=== PATIENT | male | born 1965 | race Caucasian/White ===

== ENCOUNTER 2020-07-22 06:57 | Outpatient (REF) | payer OTHER, SELFPAY ==
[2020-07-22 08:00] LABS: Hematocrit 41.1 % (42-52); Hemoglobin 13.3 g/dl (14.0-18.0); Mean Corpuscular HGB Conc 32.4 g/dl (31.0-36.0); Mean Corpuscular Hemoglobin 28.1 pg (27.0-33.0); Mean Corpuscular Volume 86.9 fL (80-98); Mean Platelet Volume 10.5 fL (9.4-12.4); Platelet Count 289 X10*3/uL (160-400); Red Blood Count 4.73 X10*6/uL (4.60-5.80); Red Cell Distribution Width 13.5 % (11.0-16.0); White Blood Count 5.3 X10*3/uL (4.8-10.8)
[2020-07-22 08:13] LABS: Estimated Average Glucose 123 mg/dL; Hemoglobin A1c % 5.9 %
[2020-07-22 08:26] LABS: Alanine Aminotransferase 42 U/L (0-40); Albumin Level 4.2 g/dL (3.5-5.0); Alkaline Phosphatase 85 U/L (39-117); Anion Gap 14 (12-20); Aspartate Amino Transferase 35 U/L (5-37); Bilirubin Total 0.5 mg/dL (0.0-1.0); Blood Urea Nitrogen 34 mg/dL (9-16); Calcium 8.6 mg/dL (8.4-10.2); Carbon Dioxide 23 mmol/L (22-29); Chloride 109 mmol/L (96-108); Cholesterol 172 mg/dL; Estimated Glomerular Filt Rate 56; Glucose Fasting 108 mg/dL (60-99); HDL Cholesterol 38 mg/dL; LDL Cholesterol Calculated 118 mg/dl; Potassium 4.8 mmol/L (3.3-5.1); Sodium 141 mmol/L (135-145); Total Protein 7.1 g/dL (6.5-8.0); Triglycerides 81 mg/dL
[2020-07-22 08:49] LABS: Prostate Specific Antigen Scr 0.82 ng/mL (<0.05-4.0); TSH reflex Free T4 1.86 uIU/mL (0.32-4.0)
[2020-07-22 09:25] LABS: Creatinine Urine 78.38 mg/dL; Microalbum/Creatinine Ratio Ur 16.5 ug/mg cr
== END 2020-07-22 06:58 | disposition home or self-care (01) ==
LOC: HO.LAB 06:57
PROVIDERS: PCP Physician Assistant; Visit Provider Physician Assistant
DX: I10 Essential (primary) hypertension (principal); E66.09 Other obesity due to excess calories; Z68.33 Body mass index [BMI] 33.0-33.9, adult; Z12.5 Encounter for screening for malignant neoplasm of prostate
CPT/HCPCS: 36415; 80053; 80061; 82043; 83036; 84153; 84443; 85027

== ENCOUNTER 2021-05-14 14:47 | Outpatient (REF) | payer OTHER, SELFPAY ==
--- NOTE | ~2021-05-14 | XR_ITS ---
EXAMINATION: CR LEFT SHOULDER. CR RIGHT SHOULDER. CLINICAL INFORMATION: Pain and unspecified shoulder. COMPARISON: None TECHNIQUE: 3 views of the left shoulder and 3 views of the right shoulder. FINDINGS: Bilaterally, no acute fracture or dislocation is seen. The glenohumeral joint and acromioclavicular joints are intact. There is prominent bursal and nonbursal surface spurring seen at the acromioclavicular joints bilaterally. No joint calcifications are seen. Included ribs bilaterally are intact. XR/XR shoulder RT min 2V IMPRESSION: 1. No acute fracture or dislocation involving the right or left shoulder. 2. Moderate degenerative changes at the acromioclavicular joints bilaterally, including bursal surface spurring is. These findings may predispose to impingement. Clinical correlation requested.
--- NOTE | ~2021-05-14 | XR_ITS ---
EXAMINATION: CR LEFT SHOULDER. CR RIGHT SHOULDER. CLINICAL INFORMATION: Pain and unspecified shoulder. COMPARISON: None TECHNIQUE: 3 views of the left shoulder and 3 views of the right shoulder. FINDINGS: Bilaterally, no acute fracture or dislocation is seen. The glenohumeral joint and acromioclavicular joints are intact. There is prominent bursal and nonbursal surface spurring seen at the acromioclavicular joints bilaterally. No joint calcifications are seen. Included ribs bilaterally are intact. XR/XR shoulder LT min 2V IMPRESSION: 1. No acute fracture or dislocation involving the right or left shoulder. 2. Moderate degenerative changes at the acromioclavicular joints bilaterally, including bursal surface spurring is. These findings may predispose to impingement. Clinical correlation requested.
== END 2021-05-14 14:48 | disposition home or self-care (01) ==
LOC: HO.HOSX 14:47
PROVIDERS: PCP Physician Assistant; Visit Provider Orthopaedic Surgery
DX: M67.911 Unspecified disorder of synovium and tendon, right shoulder (principal); M25.512 Pain in left shoulder; M25.511 Pain in right shoulder
CPT/HCPCS: 73030

== ENCOUNTER 2021-06-07 10:11 | Outpatient (REF) | payer OTHER, SELFPAY ==
[2021-06-07 12:32] LABS: Binax Internal Control QC Valid; Binax Now Covid-19 Ag Positive (Negative)
== END 2021-06-07 10:12 | disposition home or self-care (01) ==
LOC: HO.HMGCLDS 10:11
PROVIDERS: Visit Provider Internal Medicine
DX: Z20.822 Contact with and (suspected) exposure to COVID-19 (principal)
CPT/HCPCS: 36415; C9803

== ENCOUNTER 2021-06-28 12:50 | Outpatient (REF) | payer OTHER, SELFPAY ==
--- NOTE | ~2021-06-28 | MR_ITS ---
EXAMINATION: MR SHOULDER WITHOUT CONTRAST, RIGHT CLINICAL INFORMATION: Right shoulder pain following an injury. Decreased range of motion. Weakness and dysfunction of rotator cuff. COMPARISON: None TECHNIQUE: MRI of the shoulder without contrast was performed on a high-field scanner. FINDINGS: ROTATOR CUFF: Complete full-thickness tears of the supraspinatus and infraspinatus tendons with retraction of the torn tendon fibers proximal to the glenohumeral articulation. Edema within the muscles, consistent with acute muscle strains. Prominent subscapularis tendinosis with superior full-thickness partial tearing measuring up to 3.4 cm in ML dimension. Adjacent soft tissue edema. Severe teres minor muscle atrophy and fatty replacement. BICEPS: Normal. CORACOACROMIAL ARCH: The undersurface of the acromion is minimally curved with no subacromial spur. Severe acromioclavicular osteoarthritis. LABRUM/CAPSULE: Fluid within the undersurface of the posterosuperior, posterior, and posteroinferior labrum, consistent with nondisplaced undersurface tearing. Degenerative signal throughout the remaining labrum. GLENOHUMERAL JOINT/MARROW: Superior subluxation of the humeral head related to the rotator cuff tendon tears. Intact articular cartilage. No acute fracture. Large joint effusion. MR/MR shoulder RT wo con IMPRESSION: 1. Acute-appearing, complete full-thickness tears of the supraspinatus and infraspinatus tendons with retraction of the tendon fibers proximal to the glenohumeral articulation. Edema extending proximally within the muscles, consistent with acute strains. 2. Prominent subscapularis tendinosis with full-thickness partial tearing superiorly. 3. Severe acromioclavicular osteoarthritis. 4. Nondisplaced undersurface tearing throughout the posterosuperior, posterior, and posteroinferior labrum. Degenerative signal throughout the entirety of the labrum. 5. Superior subluxation of the humeral head related to the rotator cuff tendon tears. No acute fracture. Large glenohumeral joint effusion.
== END 2021-06-28 12:51 | disposition home or self-care (01) ==
LOC: HO.MRI 12:50
PROVIDERS: Visit Provider Orthopaedic Surgery
DX: M67.911 Unspecified disorder of synovium and tendon, right shoulder (principal); R29.898 Other symptoms and signs involving the musculoskeletal system
CPT/HCPCS: 73221

== ENCOUNTER → 2021-07-30 12:34 | Outpatient (BNVA) | payer OTHER, SELFPAY | PROVIDERS: PCP Physician Assistant; Visit Provider Orthopaedic Surgery ==

== ENCOUNTER 2021-08-15 05:52 | Day surgery (SDC) | payer OTHER, SELFPAY ==
[2021-08-08 19:55] VITALS: BMI 30.1
--- NOTE | 2021-08-13 11:53 | HO.ANESPROP2 ---
Documented by User: Lizbeth Guerrero NP 08/13/21 11:54 HPI - Anesthesia Eval Consult details Narrative: 56yo M for Right Arthroscopic Rotator Cuff Repair PMFSH Active Problems Active Problems: All Active Problems (Updated 08/08/21 @ 19:49 by Soraya Seymour RN) HTN (hypertension) (Acute) Obese (Acute) Annual physical exam (Acute) Impaired glucose metabolism (Acute) Right arm weakness (Acute) Dysfunction of right rotator cuff (Acute) Complete rotator cuff tear (Acute) Past Medical History Medical History (Updated 08/08/21 @ 19:49 by Soraya Seymour RN) Back pain Hypertension Normal colonoscopy Family History Family History Father Heart attack Alcoholic DMII (diabetes mellitus, type 2) Substance use disorder Surgical History Surgical History (Updated 08/08/21 @ 19:53 by Soraya Seymour RN) History of back surgery History of left hip hemiarthroplasty History of right hip replacement Social History Social History Housing: House Alcohol intake: current Alcohol intake frequency: a few times a month Patient Tobacco Use Status: Never used Tobacco e-Cigarette/Vaping Use: Never Used Second Hand Smoke Exposure: No Use of substances other than those prescribed or required for medical reasons: No Are you DNR?: No Advance Directives: No Advance Directives Information Provided: No Advance Directives on File: No Recently lost weight without trying: No Nutrition Risks: No Nutritional Risk Current occupational status: employed Current occupation: [employer] Allergies Allergy/AdvReac Type Severity Reaction Status Date / Time No Known Allergies Allergy Verified 02/13/21 08:34 [No Known Allergies*] Home Medications Medication Instructions Recorded Confirmed Last Taken Type ibuprofen 600 mg tablet 600 mg PO Q6H 05/14/21 08/08/21 Unknown History Exam Exam Date and Time: August 13, 2021 1153 Height,Weight and Vital Signs: Height 5 ft 10 in Weight 95.254 kg Assessment and Plan Assessment Anesthesia Assessment: Chart Reviewed Documented by User: Miles Gipson MD 08/15/21 07:50 PMF Past Medical History Medical History (Updated 08/08/21 @ 19:49 by Soraya Seymour, GREGORY) Back pain Hypertension Normal colonoscopy Family History Family History Father Heart attack Alcoholic DMII (diabetes mellitus, type 2) Substance use disorder Family history of problems with anesthesia: No Surgical History Surgical History (Updated 08/08/21 @ 19:53 by Soraya Seymour RN) History of back surgery History of left hip hemiarthroplasty History of right hip replacement History of Problems with Anesthesia: No Social History Social History Housing: House Alcohol intake: current Alcohol intake frequency: a few times a month Patient Tobacco Use Status: Never used Tobacco e-Cigarette/Vaping Use: Never Used Second Hand Smoke Exposure: No Use of substances other than those prescribed or required for medical reasons: No Are you DNR?: No Advance Directives: No Advance Directives Information Provided: No Advance Directives on File: No Recently lost weight without trying: No Nutrition Risks: No Nutritional Risk Current occupational status: employed Current occupation: [employer] Allergies Allergy/AdvReac Type Severity Reaction Status Date / Time No Known Allergies Allergy Verified 02/13/21 08:34 [No Known Allergies*] Home Medications Medication Instructions Recorded Confirmed Last Taken Type ibuprofen 600 mg tablet 600 mg PO Q6H 05/14/21 08/08/21 Unknown History Exam Airway Mallampati Class: III TM Dist: >3cm Neck ROM: Full Assessment and Plan Assessment Anesthesia Assessment: Anesthesia Plan Discussed Final Anesthetic Review Family History of Problems with Anesthesia: No History of Problems with Anesthesia: No NPO: Yes ASA Class: II Final Preanesthetic Review: No Changes in Pt Med Stat, Meds/Allgs Chart Reviewed, Consent Obtained/Reviewed and Anes Risks/Benef Reviewed Patient Risk: Intermediate Procedure Risk: Intermediate Anesthetic Plan Anesthetic Plan: GA and Regional Block Disposition: Standard PACU
[2021-08-15] VITALS (10 sets, daily range): BP systolic 128–147; BP diastolic 66–100; PULSE 67–81; RESP 16–20; TEMP 36.1–36.5; O2SAT 90–97
[2021-08-15] MEDS: Lactated Ringers 1,000 ML 100 ML IVCONT (06:32)
--- NOTE | 2021-08-15 09:07 | MHC.SHP ---
Pre-Procedural Eval Section A Date of Service: 08/15/21 The patient is an INPATIENT: No Changes since office visit: Yes Patient answered all questions; No Cold of Flu in the past 2 weeks, No New Medical Problems and No Changes in Medication The History & Physical has been completed within 30 days and I have reviewed it.: Yes Section B Chief Complaint: rotator cuff repair Allergies: Allergies Allergy/AdvReac Type Severity Reaction Status Date / Time No Known Allergies Allergy Verified 02/13/21 08:34 [No Known Allergies*] Plan I have reviewed the history and physical and performed a pertinent physical examination on my patient. No changes have occurred unless specified.
--- NOTE | 2021-08-15 09:08 | P.BOP_ITS ---
Brief Operative Note Date of Service: 08/15/21 Pre-op diagnosis: right RTC tear Post-op diagnosis: other (Massive rtc tear) Procedure: rotator cuff repair and circumferential labral debridement Implants: Morris and Nephew helacoil knotless 5.0 x2 Surgeon: Joel Damon MD Anesthesia: GETA and regional Was an Reinforced Concrete Inspector used for this Procedure?: Yes Reinforced Concrete Inspector: Rosie Wu Estimated blood loss (mL): 25 IV fluids (mL): 1,000 Pathology: none sent Condition: stable Disposition: PACU
--- NOTE | 2021-08-15 09:10 | W.PM.OPN ---
Operative Note Operative Note Date of Service: 08/15/21 Narrative: Pre-op diagnosis: right RTC tear Post-op diagnosis: other (Massive rtc tear) Procedure: rotator cuff repair and circumferential labral debridement Implants: Morris and Nephew helacoil knotless 5.0 x2 Surgeon: Joel Damon MD Anesthesia: GETA and regional Was an English Instructor used for this Procedure?: Yes English Instructor: Rosie Wu Estimated blood loss (mL): 25 IV fluids (mL): 1,000 Pathology: none sent Condition: stable Disposition: PACU Procedure in detail: Patient was brought to the operating room and placed the the beach chair position. All bony prominences were well padded and the limb was prepped and draped in standard sterile fashion. A time out was called to identify proper site, proper procedure and proper surgeon. IV antibiotics per weight were administered. I began by making a posterolateral stab incision with a 15 blade. A blunt trochar was placed into the glenohumeral joint and I insufflated the joint with saline and a 30 degree arthroscope was placed. I established an outside- in anterior portal just distal to the biceps tendon. I then began my inspection of the glenohumeral joint. There was G2/3 scattered changes to the glenoid. There was circumferential labral tearing. The biceps with intact and the subscapularis had a high grade tear of the proximal half with intact inferior insertion. After circumferential labral debridement I released the subscapularis medially and then placed three sutures through the torn proximal portion of the subscapularis and then, while in internal rotation placed one Helacoil knotless suture anchor just medial to the intact biceps. The subscapularis was reapproximated to its humeral insertion after debridement of the bony bed down to bleeding bone. On superior inspection there was a massive rtc tear with retraction to the level of the glenoid. For this reason the biceps tendon was not tenotomized. I then removed the trochar and entered the subacromial space. A direct lateral portal was then established and I performed a bursectomy. The cuff was then examined. The posterior 25-50% of the infraspinatus was intact with the entirety of the supraspinatus retracted to the level of the glenoid. I released medially and anteriorly but the cuff was contracted and minimally mobile. I was able to place two fiber tape sutures through posterior portion of the infraspinatus and bring these anterior to the bare area to provide more compressive against humeral head superior migration. I used a rajeev to expose bleeding bone over the bare area and then placed one Helacoil laterally. Once I was satisfied with the repair and that the remainder of the cuff was unrepairable, final images were captured and I removed all instrumentation. Portals were closed with nylon. Patient was placed in an abduction sling, extubated and brought to the recovery room in stable condition. There were no known complications.
[2021-08-15] MEDS: oxyCODONE HCl Immed Release 5 MG TABLET 10 MG PO (10:32)
== END 2021-08-15 11:47 | disposition home or self-care (01) ==
PROVIDERS: PCP Physician Assistant; Visit Provider Orthopaedic Surgery
PROC: (CPT 29827; principal; 2021-08-15 07:30)
DX: S46.011A Strain of muscle(s) and tendon(s) of the rotator cuff of right shoulder, initial encounter (principal); R53.1 Weakness; W11.XXXA Fall on and from ladder, initial encounter; Y93.89 Activity, other specified; Y92.9 Unspecified place or not applicable; Y99.8 Other external cause status; M19.019 Primary osteoarthritis, unspecified shoulder; I10 Essential (primary) hypertension; M54.50 Low back pain, unspecified; Z79.899 Other long term (current) drug therapy; Z98.1 Arthrodesis status; Z96.641 Presence of right artificial hip joint
CPT/HCPCS: 29827; 29826; C1713; J0171; J0690; J1100; J2250; J2370; J2405; J3010

== ENCOUNTER → 2021-08-20 11:05 | Outpatient (BNVA) | payer OTHER, SELFPAY | PROVIDERS: Visit Provider Physician Assistant | DX: M25.511 Pain in right shoulder (principal); Z47.89 Encounter for other orthopedic aftercare; Z79.899 Other long term (current) drug therapy; Z98.890 Other specified postprocedural states ==

== ENCOUNTER → 2021-09-24 09:17 | Outpatient (BNVA) | payer OTHER, SELFPAY | PROVIDERS: PCP Internal Medicine; Visit Provider Physician Assistant | DX: Z13.89 Encounter for screening for other disorder (principal) ==

== ENCOUNTER 2021-10-30 09:00 | Outpatient (RCR) | payer OTHER, SELFPAY ==
--- NOTE | 2021-08-20 14:49 | MHC.PT.EP ---
[facility] [place] Office [place] Office [place] Office [address] Yohan Bustillos [address] [phone] F: [phone] F: [phone] F: [phone] F: [phone] Physical Therapy Plan of Care Date of Evaluation: Date of Surgery: 08/15/21 Diagnosis: RIGHT ROTATOR CUFF REPAIR SUPRA AND INFRASPINATUS REPAIR (MASSIVE) Assessment: SG IS A PLEASANT 56 YO GENTLEMAN WHO PRESENTS S/P RIGHT ROTATOR CUFF REPAIR. UPON EXAM, HE DEMONSTRATES THE EXPECTED IMPAIRMENTS OF DECREASED ROM AND STRENGTH, INCREASED EDEMA AND PAIN. FUNCTIONAL LIMITATIONS INCLUDE DECREASED ABILTIY TO PERFORM HOMEMAKING AND SELF CARE TASKS, INABILITY TO USE RIGHT UE FOR LIFTING, REACHING, CARRYING, PUSHING AND PULLING. HE REPORTS DECREASED ABILTY TO PERFORM WORK TASKS, RECREATIONAL ACTIVITIES AND COMMUNITY ACTIVITIES. HE REPORTS DISRUPTED SLEEP. A PT IS A GOOD CANDIDATE FOR SKILLED PT DUE TO AGE, POTENTIAL REMEDIATION OF IMPAIRMENTS, TYPICAL DISEASE/CONDITION PROGRESSION AND PROGNOSIS, COMORBIDITIES, AND MOTIVATION. PT WOULD BENEFIT FROM TAILORED PROGRAM OF THERAPEUTIC ACTIVITIES, FUNCTIONAL TRAINING, GAIT TRAINING, POSTURAL EDUCATION, NEUROMUSCULAR RE-EDUCATION, AND MODALITIES NEEDED. Frequency and Duration: The patient will be seen 2 X WEEK FOR 8 WEEKS THEN REASSESS Short Term Goals: INITIATE HEP AND PROMOTE SELF MANAGEMENT OF SYMPTOMS Ring Attacher Goals: BY WEEK 8 MINIMUM OF 120 DEGREES OF SHOULDER ELEVATION INCREASE OF SHOULDER STRENGTH TO MINIMUM OF 4/5 T/O SHOULDER TO PERFORM HOMEMAKING AND SELF CARE TASKS WITHOUT RESTRICTION SPADI SCORE OF LESS THAN 25% DISABILITY Treatment Plan: Modalities to reduce pain, spasms and effusion. Manual therapy to restore motion and function. Therapeutic exercise to improve strength and flexibility. Neuromuscular re-education for posture and balance. Therapeutic activities to return to functional activities of daily living. Electronically signed by: GARIMA MTZ PT, DPT Please sign and return to therapist. Thank you for your referral.
--- NOTE | 2021-12-03 15:12 | MHC.PT.DC ---
[facility] [place] Office [place] Office [place] Office [address] Yohan Bustillos [address] [phone] F: [phone] F: [phone] F: [phone] F: [phone] Physical Therapy Discharge Report Diagnosis: RIGHT ROTATOR CUFF REPAIR SUPRA AND INFRASPINATUS REPAIR (MASSIVE) Date of Surgery: 08/15/21 Date of Evaluation: 08/20/21 Date of Discharge: 12/03/21 Treatments to Date: 20 Cancellations to Date: 0 No Shows to Date: 0 Discharge Status: Independent with HEP Patient Elected to Stop Discharge Summary: Patient is returning to work and has elected to end therapy. Has thorough HEP to continue on his own. Educated on safety and healing. DC'd chart after 30 days. Electronically signed by: Jhoana Baker PT Please sign and return to therapist. Thank you for your referral.
== END 2021-12-03 15:13 | disposition home or self-care (01) ==
LOC: HO.PTCHIC 09:00
PROVIDERS: Visit Provider Physician Assistant
DX: Z98.890 Other specified postprocedural states (principal)
CPT/HCPCS: 97110; 97140; 97161; 97530

== ENCOUNTER → 2021-11-05 08:36 | Outpatient (BNVA) | payer OTHER, SELFPAY | PROVIDERS: PCP Internal Medicine; Visit Provider Orthopaedic Surgery | DX: Z98.890 Other specified postprocedural states (principal) ==

== ENCOUNTER 2022-08-23 07:07 | Outpatient (REF) | payer OTHER, SELFPAY ==
[2022-08-23 07:30] LABS: Hematocrit 37.8 % (42.0-52.0); Hemoglobin 12.6 g/dl (14.0-18.0); Mean Corpuscular HGB Conc 33.3 g/dl (31.0-36.0); Mean Corpuscular Hemoglobin 28.8 pg (27.0-33.0); Mean Corpuscular Volume 86.3 fL (80.0-98.0); Mean Platelet Volume 10.1 fL (9.4-12.4); Platelet Count 256 X10*3/uL (160-400); Red Blood Count 4.38 X10*6/uL (4.60-5.80); Red Cell Distribution Width 13.3 % (11.0-16.0); White Blood Count 6.3 X10*3/uL (4.8-10.8)
[2022-08-23 08:12] LABS: Alanine Aminotransferase 30 U/L (0-40); Albumin Level 4.3 g/dL (3.5-5.0); Alkaline Phosphatase 59 U/L (39-117); Anion Gap 14 (12-20); Aspartate Amino Transferase 35 U/L (5-37); Bilirubin Total 0.6 mg/dL (0.0-1.0); Blood Urea Nitrogen 24 mg/dL (9-16); Calcium 8.9 mg/dL (8.4-10.2); Carbon Dioxide 24 mmol/L (22-29); Chloride 106 mmol/L (96-108); Cholesterol 205 mg/dL; Estimated Glomerular Filt Rate 54; Glucose Fasting 98 mg/dL (60-99); HDL Cholesterol 42 mg/dL; LDL Cholesterol Calculated 135 mg/dl; Potassium 4.3 mmol/L (3.3-5.1); Sodium 140 mmol/L (135-145); Total Protein 7.1 g/dL (6.5-8.0); Triglycerides 141 mg/dL
[2022-08-23 08:18] LABS: Prostate Specific Antigen Scr 1.44 ng/mL (<0.05-4.0)
[2022-08-23 08:21] LABS: Creatinine Urine 101.79 mg/dL; Microalbum/Creatinine Ratio Ur 6.8 ug/mg cr
== END 2022-08-23 07:08 | disposition home or self-care (01) ==
LOC: HO.LAB 07:07
PROVIDERS: PCP Physician Assistant; Visit Provider Physician Assistant
DX: Z12.5 Encounter for screening for malignant neoplasm of prostate (principal); I10 Essential (primary) hypertension
CPT/HCPCS: 36415; 80053; 80061; 82043; 84153; 84443; 85027

== ENCOUNTER 2023-01-23 09:22 | Outpatient (AMB) | payer OTHER, SELFPAY ==
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
[2023-01-23 09:25] VITALS: BMI 30.1
== END 2023-01-23 11:34 | disposition home or self-care (01) ==
PROVIDERS: PCP Physician Assistant; Visit Provider Orthopaedic Surgery
DX: M25.511 Pain in right shoulder (principal); R20.0 Anesthesia of skin
CPT/HCPCS: 99214

== ENCOUNTER → 2023-01-23 09:22 | Outpatient (BNVA) | payer OTHER, SELFPAY | PROVIDERS: PCP Physician Assistant; Visit Provider Orthopaedic Surgery ==

== ENCOUNTER 2023-02-20 12:53 | Outpatient (REF) | payer OTHER, SELFPAY ==
--- NOTE | 2023-02-20 13:05 | EMG_ITS ---
Chief complaint: Right-sided hand numbness affecting any of the fingers randomly Reason for referral: Evaluate for neuropathy versus radiculopathy Referred by: Dr. Damon Procedure done: Right upper extremity NCS/EMG Precautions and/or limitations: None The limb temperature was monitored continuously and remained between 32-36 degrees C during the performance of the NCS. Nerve Conduction Studies Anti Sensory Summary Table ?Stim Site NR Onset (ms) Norm Onset (ms) Peak (ms) Norm Peak (ms) O-P Amp (?V) Norm O-P Amp Site1 Site2 Delta-0 (ms) Dist (cm) Homero (m/s) Norm Homero (m/s) Right Median Anti Sensory (2nd Digit) Wrist ? 2.8 4.1 <3.6 13.6 >10 Wrist 2nd Digit 2.8 14.0 50 Right Radial Anti Sensory (Thumb) Forearm ? 2.0 2.6 <3.1 10.5 Forearm Thumb 2.0 0.0 Right Ulnar Anti Sensory (5th Digit) Wrist ? 0.3 3.3 <3.7 15.6 >15.0 Wrist 5th Digit 0.3 14.0 467 Motor Summary Table ?Stim Site NR Onset (ms) Norm Onset (ms) O-P Amp (mV) Norm O-P Amp iAmp (mV) Amp (1st) (%) Site1 Site2 Delta-0 (ms) Dist (cm) Homero (m/s) Norm Homero (m/s) Right Median Motor (Abd Poll Brev) Wrist ? 4.7 <3.9 6.9 >4.5 8.0 100.0 Elbow Wrist 3.9 21.0 54 >45 Elbow ? 8.6 6.5 7.5 94.2 Right Ulnar Motor (Abd Dig Minimi) Wrist ? 3.0 <3.0 5.2 >5 6.0 100.0 B Elbow Wrist 3.6 19.0 53 >45 B Elbow ? 6.6 5.1 5.9 98.1 A Elbow B Elbow 1.9 10.0 53 >45 A Elbow ? 8.5 4.7 5.5 90.4 EMG ?Side Muscle Nerve Root Ins Act Fibs Psw Amp Dur Poly Recrt Int Pat Comment Right 1stDorInt Ulnar C8-T1 Nml Nml Nml Nml Nml 0 Nml Complete Right FlexCarRad Median C6-7 Nml Nml Nml Nml Nml 0 Nml Complete Right Biceps Musculocut C5-6 Nml Nml Nml Nml Nml 0 Nml Complete Right Triceps Radial C6-7-8 Nml Nml Nml Nml Nml 0 Nml Complete Right Deltoid Axillary C5-6 Nml Nml Nml Nml Nml 0 Nml Complete Paraspinal EMG ?Side Muscle Nerve Root Ins Act Fibs Psw Comment Right Cervical Upper Rami Nml Nml Nml Right Cervical Mid Rami Nml Nml Nml Right Cervical Lower Rami Nml Nml Nml FINDINGS: Right median motor nerve showed prolonged distal latency, normal amplitude and normal conduction velocity. Right median sensory nerve showed prolonged peak latency. All other nerves tested were within normal. Concentric needle EMG was performed in selected muscles of the right upper extremity and cervical paraspinals. Study did not reveal signs of electric abnormalities as shown in the table below. IMPRESSION: 1. This is an abnormal study. 2. There is electrodiagnostic evidence for right moderate-severe median neuropathy at the wrist, consistent with carpal tunnel syndrome. 3. There is no electrodiagnostic evidence for ulnar neuropathy, brachial plexopathy, or cervical radiculopathy. Thank you for your kind referral. Savanna Olivares MD, RAFAEL Board Certified, [place] [employer] and Rehabilitation (ABPMR) Board Certified, [place] Board of Electrodiagnostic Medicine (ABEM) [place] [id number] [facility]
== END 2023-02-20 12:54 | disposition home or self-care (01) ==
LOC: HO.NEURO 12:53
PROVIDERS: PCP Physician Assistant; Visit Provider Orthopaedic Surgery
DX: R20.0 Anesthesia of skin (principal)
CPT/HCPCS: 95886; 95909

== ENCOUNTER → 2023-02-20 13:05 | Outpatient (BNV) | payer OTHER, SELFPAY | PROVIDERS: PCP Physician Assistant; Visit Provider Physical Medicine & Rehabilitation | DX: G56.13 Other lesions of median nerve, bilateral upper limbs (principal); G56.03 Carpal tunnel syndrome, bilateral upper limbs | CPT/HCPCS: 95886; 95909 ==

== ENCOUNTER 2023-03-10 10:38 | Outpatient (AMB) | payer OTHER, SELFPAY ==
[2023-03-10 10:54] VITALS: BP 122/82; PULSE 66; RESP 17; O2SAT 98; BMI 27.2
--- NOTE | 2023-03-10 10:54 | MHC.PC.OV ---
Vital Signs 03/10/23 10:54 Height 5 ft 10 in Weight 189 lb 4 oz BMI 27.2 BP 122/82 Blood Pressure Location Lt brachial Position Sitting Respiration 17 Pulse 66 Pulse Source Pulse Oximeter Pulse Oximetry (%) 98 Oxygen Delivery Method Room Air Intake Visit Reasons: Right shoulder pain Intake Note: Pt is here for right shoulder pain due to s/p Right RTC Repair 08/15/22. Labs and nerve conduction study results. Pt would like to discuss disability letter due to all his conditions. Leak Hunter Required: No Accompanied by: Self / Same As Patient Allergies No Known Allergies [No Known Allergies*] Allergy (Verified 03/10/23 11:14) Medication List - Last Reconciled 03/10/23 by Anish Barr PA-C lisinopril 20 mg PO DAILY 90 days miscellaneous medical supply (Blood Pressure Cuff) As directed Tobacco use date assessed: 08/14/22 Dental Screening Dental Screen Date: 03/10/23 Did you have a dental visit in the last 12 months?: Yes Did you have a dental problem in the last 6 months where you did not have access to dental care?: No Was dental information given to patient?: Patient has dentist HPI Right shoulder pain HPI Details Patient is a 57-year-old male here today for a problem visit. Patient has a past medical history significant for hypertension, pair glucose metabolism. Patient reports he has been having right shoulder pain and hand numbness . Most recent EMG showing positive evidence of moderate to severe of carpal tunnel syndrome. He is unsure if he would like to go through another surgery for his right upper extremity issues. He is contemplating applying for disability though has a lot of financial constraints. MRI right shoulder in 2021 showing--> Acute-appearing, complete full-thickness tears of the supraspinatus and infraspinatus tendons with retraction of the tendon fibers proximal to the glenohumeral articulation. Edema extending proximally within the muscles, consistent with acute strains. 2. Prominent subscapularis tendinosis with full-thickness partial tearing superiorly. 3. Severe acromioclavicular osteoarthritis. 4. Nondisplaced undersurface tearing throughout the posterosuperior, posterior, and posteroinferior labrum. Degenerative signal throughout the entirety of the labrum. Otherwise review patient's labs and noted borderline high total cholesterol. Has made a lot of lifestyle changes including his diet and has lost significant amount of weight. Will recheck fasting cholesterol to assess for improvement. Hypertension: Blood pressure today in office acceptable. Continues on lisinopril 20 mg without any side effect. [facility] Medical History (Updated 03/10/23 @ 11:23 by Anish Barr PA-C) Back pain Hypertension Normal colonoscopy Surgical History (Updated 03/10/23 @ 11:19 by Anish Barr PA-C) S/P shoulder surgery History of back surgery History of left hip hemiarthroplasty History of right hip replacement Family History Father Heart attack Alcoholic DMII (diabetes mellitus, type 2) Substance use disorder Social History Housing: House Alcohol intake: current Alcohol intake frequency: a few times a month Alcohol type: beer and hard liquor Patient Tobacco Use Status: Never used Tobacco e-Cigarette/Vaping Use: Never Used Second Hand Smoke Exposure: No service: No Current occupational status: employed Current occupation: [employer] Cognitive needs: No Hearing needs: No Vision needs: No Questionnaire Thrive Questionnaire Date Thrive assessed: 08/14/22 YU-7 AMB Questionnaire YU-7 Date YU - 7 assessed: 08/14/22 Source: Developed by Drs. Carlton Rivera, Estee Truong, Patel Montague and colleagues, with an educational ashish from [employer]. Review of Systems Const Denies headache(s) Eyes Denies loss of vision ENT Denies vertigo, Denies dizziness, Denies headache(s) and Denies sore throat Card Denies chest pain, Denies leg edema and Denies lightheadedness Resp Denies cough, Denies hemoptysis and Denies wheezing GI Denies abdominal pain, Denies melena, Denies constipation, Denies diarrhea and Denies vomiting Denies dysuria, Denies urinary frequency and Denies urinary urgency Musc Denies arthralgias, Denies joint swelling, Denies numbness and Denies tingling Neuro Denies Abnormal speech present, Denies behavioral changes, Denies vertigo, Denies dizziness, Denies headache(s), Denies loss of vision, Denies memory loss, Denies numbness and Denies tingling Psych Denies anxiety, Denies behavioral changes, Denies depression, Denies memory loss and Denies panic attacks Lobo/Lymph Denies easy bleeding and Denies easy bruising Aller/Immun Denies wheezing Physical exam (Primary Care) Vital Signs: Last Vital Signs Pulse 66 03/10/23 10:54 Resp 17 03/10/23 10:54 BP 122/82 03/10/23 10:54 Pulse Ox 98 03/10/23 10:54 Oxygen Delivery Method Room Air 03/10/23 10:54 BMI result Body Mass Index 27.2 Tobacco/Smoking Status: Tobacco use Status Tobacco use date assessed 08/14/22 03/10/23 10:54 Patient Tobacco Use Status Never used Tobacco 03/10/23 10:54 e-Cigarette/Vaping Use Never Used 03/10/23 10:54 Thrive Assessment: Date of Thrive Assessment Date Thrive assessed 08/14/22 03/10/23 10:54 Const General: healthy appearing, no acute distress, alert and awake Nutritional Appearance: well nourished Orientation/consciousness: oriented to person, oriented to place and oriented to time HENMT Ears: TM's normal bilaterally General nose exam: Normal nasal mucous membranes and turbinates present Eyes Conjunctivae: conjunctivae normal Sclerae: sclerae normal Pupils: Equal, round and reactive pupils present Neck Neck: Yes no lymphadenopathy and Yes no JVD Thyroid: Thyroid normal Carotids: no bruits Resp Effort & Inspection: normal respiratory effort and not tachypneic Auscultation: no crackles, no rales, no rhonchi and no wheezes Cardio Rate: regular rate Rhythm: regular rhythm Heart sounds: no murmurs and normal S1 and S2 GI Palpation (GI): Soft to palpation, nontender, no hepatomegaly and no splenomegaly Auscultation: normal bowel sounds Skin General skin exam: no rashes or lesions noted and dry skin Neuro General: oriented to person, oriented to place and oriented to time Cranial nerves: Yes Equal, round and reactive pupils present Speech: No Abnormal speech present Gait exam (Neuro): Normal gait present Motor exam (neuro): no tremor noted Extrem Other: RIGHT UPPER EXTREMITY: LIMITED RANGE OF MOTION OF THE RIGHT SHOULDER DUE TO PAIN AND STIFFNESS Right upper extremity: full ROM Left upper extremity: full ROM Right lower extremity: full ROM; no edema Left lower extremity: full ROM; no edema Psych Mental Status: mental status grossly normal Speech and movement: Normal speech and movement present Affect: normal affect Attitude: cooperative Thought process: Normal thought process present Assessment and Plan Assessment & Plan (1) S/P right rotator cuff repair: Code(s): Z98.890 - Other specified postprocedural states Plan: Patient is status post right rotator cuff tear repair. Unfortunately has not regained full range of motion of his right shoulder. Has done physical therapy. He is considering applying for disability as he has other orthopedic issues in his lower lumbar spine disc reconstruction and hip replacement.. (2) History of back surgery: Comment: L5 lumbar fusion Code(s): Z98.890 - Other specified postprocedural states (3) Right carpal tunnel syndrome: Code(s): G56.01 - Carpal tunnel syndrome, right upper limb Plan: Most recent EMG showing positive evidence of right moderate to severe carpal tunnel syndrome. He is considering followed up with orthopedics about this. (4) Borderline high cholesterol: Code(s): E78.9 - Disorder of lipoprotein metabolism, unspecified Plan: Most recent fasting lipid panel showing borderline high total cholesterol. Has made lifestyle adjustments in his diet and has lost a significant amount of weight. Will recheck fasting lipid panel pain Orders: Orders Comprehensive [place]. Panel Fast Today I10 - Essential (primary) hypertension Hemoglobin A1c Today R73.09 - Other abnormal glucose Lipid Panel Today E78.9 - Disorder of lipoprotein metabolism, unspecified Microalbumin, Random (w Creat) Today I10 - Essential (primary) hypertension Prostate Specific Antigen Scr Today E78.9 - Disorder of lipoprotein metabolism, unspecified, Z12.5 - Encounter for screening for malignant neoplasm of prostate Medications: Refilled lisinopril 20 mg PO DAILY 90 days 90 tabs 2RF I10 - Essential (primary) hypertension Coding Level of Care Code Est Pt Level 4 (80652) Diagnoses S/P right rotator cuff repair Z98.890 History of back surgery Z98.890 Right carpal tunnel syndrome G56.01 Borderline high cholesterol E78.9
== END 2023-03-10 11:35 | disposition home or self-care (01) ==
PROVIDERS: PCP Physician Assistant; Visit Provider Physician Assistant
DX: Z98.890 Other specified postprocedural states (principal); G56.01 Carpal tunnel syndrome, right upper limb; E78.9 Disorder of lipoprotein metabolism, unspecified
CPT/HCPCS: 99214

== ENCOUNTER 2023-08-13 07:14 | Outpatient (REF) | payer OTHER, SELFPAY ==
[2023-08-13 08:07] LABS: Estimated Average Glucose 114 mg/dL; Hemoglobin A1c % 5.6 % (<6.0)
[2023-08-13 08:18] LABS: Alanine Aminotransferase 22 U/L (0-40); Albumin Level 4.3 g/dL (3.5-5.0); Alkaline Phosphatase 60 U/L (39-117); Anion Gap 11 (12-20); Aspartate Amino Transferase 31 U/L (5-37); Bilirubin Total 0.5 mg/dL (0.0-1.0); Blood Urea Nitrogen 27 mg/dL (9-16); Calcium 9.2 mg/dL (8.4-10.2); Carbon Dioxide 24 mmol/L (22-29); Chloride 108 mmol/L (96-108); Cholesterol 203 mg/dL (<200); Estimated Glomerular Filt Rate 57; Glucose Fasting 107 mg/dL (60-99); HDL Cholesterol 46 mg/dL (>40); LDL Cholesterol Calculated 131 mg/dL (<100); Potassium 3.8 mmol/L (3.3-5.1); Sodium 139 mmol/L (135-145); Total Protein 7.3 g/dL (6.5-8.0); Triglycerides 130 mg/dL (<150)
[2023-08-13 08:39] LABS: Prostate Specific Antigen Scr 2.27 ng/mL (<0.05-4.0)
[2023-08-13 10:38] LABS: Creatinine Urine 70.42 mg/dL; Microalbumin Urine < 5.0 mg/L
== END 2023-08-13 07:15 | disposition home or self-care (01) ==
LOC: HO.LAB 07:14
PROVIDERS: PCP Physician Assistant; Visit Provider Physician Assistant
DX: Z12.5 Encounter for screening for malignant neoplasm of prostate (principal); R73.09 Other abnormal glucose; E78.9 Disorder of lipoprotein metabolism, unspecified; I10 Essential (primary) hypertension
CPT/HCPCS: 36415; 80053; 80061; 82043; 82570; 83036; 84153

== ENCOUNTER 2023-08-18 08:47 | Outpatient (AMB) | payer OTHER, SELFPAY ==
[2023-08-18 09:13] VITALS: BP 138/90; PULSE 62; O2SAT 96; BMI 28.6
--- NOTE | 2023-08-18 09:13 | A.OFFPC_ITS ---
Vital Signs 08/18/23 09:13 Height 5 ft 10 in Weight 199 lb 6 oz BMI 28.6 BP 138/90 H Blood Pressure Location Lt brachial Position Sitting Pulse 62 Pulse Source Pulse Oximeter Pulse Oximetry (%) 96 Oxygen Delivery Method Room Air Intake Visit Reasons: PE Intake Note: Patient is here today for a physical. Analytics Intern Required: No Accompanied by: Self / Same As Patient Allergies No Known Allergies [No Known Allergies*] Allergy (Verified 08/18/23 09:25) Medication List - Last Reconciled 08/18/23 by Anish Barr PA-C lisinopril 20 mg PO DAILY 90 days miscellaneous medical supply (Blood Pressure Cuff) As directed Tobacco use date assessed: 08/14/22 Dental Screening Dental Screen Date: 08/18/23 Did you have a dental visit in the last 12 months?: Yes Did you have a dental problem in the last 6 months where you did not have access to dental care?: No Was dental information given to patient?: Patient has dentist HPI PE HPI Details Patient is a 58-year-old male here today for annual physical.? Patient has a past medical history significant for obesity, hypertension, status post total hip replacements. .. Hypertension:? Blood pressure slightly elevated today in office, continues on lisinopril 20 mg. He reports he has been under lot of stress as of late as he has moved out of his house and sold his old house.. He does not regularly monitor his blood pressure at home.? Otherwise patient asymptomatic without any headaches, chest discomfort or palpitations. .. Obesity: Patient does understand his BMI is over 30 will work on lifestyle modifications to reduce his weight. .. Borderline high cholesterol: Patient continues to have borderline high total cholesterol. .. Vaccines:? Up-to-date with tetanus. declines flu and COVID vaccine. Considering Shingles .. Colonoscopy: 2017 Dr Tellez?- Normal repeat 10 years? ? Laboratory Tests 08/23/22 08/23/22 08/13/23 07:17 07:17 07:17 Hgb 12.6 L BUN 27 H Creatinine 1.29 Fasting Glucose 107 H Hemoglobin A1c % 5.6 Cholesterol 203 H LDL Cholesterol, C alc 135 131 H PSA Screen Urine Microalbumin 08/13/23 08/13/23 07:17 07:20 Hgb BUN Creatinine Fasting Glucose Hemoglobin A1c % Cholesterol LDL Cholesterol, C alc PSA Screen 2.27 Urine Microalbumin < 5.0 PFSH Medical History Back pain Hypertension Normal colonoscopy Surgical History S/P shoulder surgery History of back surgery History of left hip hemiarthroplasty History of right hip replacement Family History Father Heart attack Alcoholic DMII (diabetes mellitus, type 2) Substance use disorder Social History (Updated 08/18/23 @ 09:23 by Anish Barr PA-C) Housing: House Alcohol intake: current Alcohol intake frequency: a few times a month Alcohol type: beer and hard liquor Comment: FELL OFF LADDER, OTHERWISE NO FALL RISK Patient Tobacco Use Status: Never used Tobacco e-Cigarette/Vaping Use: Never Used Second Hand Smoke Exposure: No service: No Current occupational status: employed Current occupation: [employer] Cognitive needs: No Hearing needs: No Vision needs: No Questionnaire PHQ-9 Over the last 2 weeks, how often have you been bothered by any of the following problems? 1. Little interest or pleasure in doing things: not at all 2. Feeling down, depressed, or hopeless: not at all 3. Trouble falling or staying asleep, or sleeping too much: not at all 4. Feeling tired or having little energy: not at all 5. Poor appetite or overeating: not at all 6. Feeling bad about yourself - or that you are a failure or have let yourself or your family down: not at all 7. Trouble concentrating on things, such as reading the newspaper or watching television: not at all 8. Moving or speaking so slowly that other people could have noticed. Or the opposite - being so fidgety or restless that you have been moving around a lot more than usual: not at all 9. Thoughts that you would be better off or of hurting yourself in some way: not at all Total score: 0 Depression Screening Interpretation: Negative Depression Screening Done: Yes 77903 - PHQ-9 Billing: Yes Source: Developed by Drs. Carlton Rivera, Estee B.Patel Wheeler and colleagues, with an educational ashish from [employer]. Thrive Questionnaire Date Thrive assessed: 08/18/23 I am a: Patient What is your living situation today?: I have a steady place to live Within the past 12 months, did the food you bought not last and you didn't have the money to get more?: Never true Within the past 12 months, did you worry whether your food would run out before you got money to buy more?: Never true Do you have trouble paying for medicines?: No Do you have trouble getting transportation to medical appointments?: No Do you have trouble paying your heating and electricity bill?: No Do you have trouble taking care of your child, family member or friend?: No Do you have trouble with day-to-day activities such as bathing, preparing meals, shopping, managing finances, etc.?: No Are you currently unemployed and looking for a job?: No Are you interested in more education?: No Please select the resources that you would like help with: None Currently or been in a relationship where the following occur: no concerns reported THRIVE Score: 0 AUDIT C Alcohol Use Questionnaire (AUDIT-C) 1. How often do you have a drink containing alcohol?: 2-4 times a month 2. How many drinks containing alcohol do you have on a typical day when you are drinking?: 1 or 2 3. How often do you have six or more drinks on one occasion?: Never Total Score: 2 YU-7 AMB Questionnaire YU-7 Date YU - 7 assessed: 08/18/23 Feeling nervous, anxious, or on edge: 0 = Not at all Not being able to stop or control worryin = Not at all Worrying too much about different things: 0 = Not at all Trouble relaxin = Not at all Being so restless that it is hard to sit still: 0 = Not at all Becoming easily annoyed or irritable: 0 = Not at all Feeling afraid as if something awful might happen: 0 = Not at all Total YU-7 score (0-4 normal; 5-9 mild; 10-14 moderate; 15-21 severe): 0 Source: Developed by Drs. Carlton Rivera, Patel Rojas and colleagues, with an educational ashish from [employer]. YU-7 Assessment Billing YU-7 Assessment Tool: YU-7 Assessment 20965 Review of Systems Const Denies body aches, Denies chills, Denies excessive sweating, Denies fatigue, Denies fever(s) and Denies headache(s) Eyes Denies blurry vision ENT Denies dysphagia, Denies vertigo, Denies dizziness, Denies headache(s), Denies hearing loss and Denies tinnitus Card Denies chest pain, Denies chest pain with activity, Denies syncope, Denies irregular heart rhythm and Denies dyspnea Resp Denies chest congestion, Denies cough, Denies hemoptysis, Denies dyspnea and Denies wheezing GI Denies abdominal pain, Denies melena, Denies hematochezia, Denies coffee ground emesis, Denies dysphagia, Denies diarrhea, Denies nausea and Denies vomiting Denies difficulty urinating, Denies dysuria, Denies urinary frequency, Denies urinary hesitancy and Denies urinary urgency Musc Denies arthralgias, Denies limited range of motion, Denies muscle cramps and Denies muscle weakness Skin/Breast Denies rash and Denies skin ulcer Neuro Denies Abnormal speech present, Denies confusion, Denies vertigo, Denies dizziness, Denies syncope, Denies headache(s), Denies memory loss and Denies seizure-like activity Psych Denies anxiety, Denies confusion, Denies depression, Denies memory loss, Denies panic attacks and Denies paranoia Endo Denies excessive sweating, Denies fatigue, Denies flushing, Denies polydipsia and Denies polyuria Aller/Immun Denies wheezing Physical exam (Primary Care) Vital Signs: Last Vital Signs Pulse 62 08/18/23 09:13 BP 138/90 H 08/18/23 09:13 Pulse Ox 96 08/18/23 09:13 Oxygen Delivery Method Room Air 08/18/23 09:13 BMI result Body Mass Index 28.6 Tobacco/Smoking Status: Tobacco use Status Tobacco use date assessed 08/14/22 08/18/23 09:18 Patient Tobacco Use Status Never used Tobacco 08/18/23 09:23 e-Cigarette/Vaping Use Never Used 08/18/23 09:23 PHQ-9: PHQ-9 Score PHQ-9: Total score 0 08/18/23 09:18 Depression Screening Interpretation: Negative Thrive Assessment: Date of Thrive Assessment Date Thrive assessed 08/18/23 08/18/23 09:18 Currently or been in a relationship where the following occur: no concerns reported Const General: cooperative, comfortable, no acute distress, alert and awake; No confusion Orientation/consciousness: oriented to person, oriented to place, patient oriented x3 and No confusion HENMT Head: Yes normocephalic Ears: external ears normal and TM's normal bilaterally Face and sinus: No sinus tenderness Mouth: Normal oral and palatal mucosa present and tongue normal Teeth and gingiva: dentition normal and gingiva normal Throat: Yes posterior oropharynx normal, Yes tonsils normal and Yes uvula midline Eyes Conjunctivae: conjunctivae normal Sclerae: sclerae normal Pupils: Equal, round and reactive pupils present EOM: EOMs intact bilaterally Direct Ophthalmoscopy: No no photophobia Neck Neck: Yes no lymphadenopathy, No tender and Yes no JVD Thyroid: Thyroid normal Carotids: no bruits Chest Chest palpation & inspection: no tenderness Resp Effort & Inspection: normal respiratory effort, no audible wheezes, not labored and no stridor Auscultation: no crackles, no rales, no rhonchi and no wheezes Cardio Jugular venous distension: no JVD Rate: regular rate, not bradycardic and not tachycardic Rhythm: regular rhythm Bruits: no carotid bruits Peripheral pulses: Peripheral pulses 2+ throughout GI Inspection: Yes normal to inspection, No abdominal wall ecchymosis and No visible herniation Palpation (GI): Soft to palpation, nontender, no guarding, not rigid and No hepatosplenomegaly present Auscultation: normoactive bowel sounds General: Yes no CVA tenderness Back/Spine/Pelvis Back: no CVA tenderness and No back tenderness Cervical Spine: cervical ROM normal Thoracic/Lumbar Spine: thoracic and lumbar spine normal to inspection, straight leg raise negative bilaterally, No thoraco-lumbar ROM limited and No lumbar spinal tenderness Skin Lesions: no lesions Rashes: no rashes Wounds: no wounds Neuro General: oriented to person, oriented to place, patient oriented x3, CN's II-XI intact bilaterally and No confusion Cranial nerves: Yes Equal, round and reactive pupils present and Yes Normal accommodation reflex present Cognition (Neuro): normal cognition Speech: No Abnormal speech present Gait exam (Neuro): Normal gait present Motor exam (neuro): 5 motor strength present throughout Extrem Right upper extremity: full ROM; no cyanosis Left upper extremity: full ROM; no cyanosis Right lower extremity: no edema Left lower extremity: no edema Psych Appearance: grossly normal Mental Status: mental status grossly normal Affect: normal affect Attitude: cooperative Thought process: Normal thought process present Assessment and Plan Assessment & Plan (1) Annual physical exam: Code(s): Z00.00 - Encounter for general adult medical examination without abnormal findings (2) Borderline high cholesterol: Code(s): E78.9 - Disorder of lipoprotein metabolism, unspecified Plan: Most recent fasting lipid panel showing borderline high total cholesterol. He will continue to manage his borderline high cholesterol with dietary and lifestyle modifications. Goal total cholesterol to be below 200. Goal LDL to be below 160 (3) HTN (hypertension): Code(s): I10 - Essential (primary) hypertension Qualifiers: Hypertension type: essential hypertension Qualified Code(s): I10 - Essential (primary) hypertension Plan: Patient's blood pressure slightly elevated today in office. He has been somewhat stress due to personal issues. He has not monitor blood pressure at home. He is asymptomatic without any headaches, chest pain shortness for breath. Will continue lisinopril 20 mg with goal blood pressure to remain below 140/90 (4) Impaired glucose metabolism: Code(s): R73.09 - Other abnormal glucose Plan: Patient's most recent fasting blood sugar 107, A1c stable. Will continue to f ollow fasting blood sugar. He will try to implement low sugar and low carbohydrate diet to manage his blood sugars. Coding Level of Care Code Est Pt Prev Care 40-64y(12152) Diagnoses Annual physical exam Z00.00 Borderline high cholesterol E78.9 Essential hypertension I10 Hypertension type: essential hypertension Impaired glucose metabolism R73.09 Additional Codes YU-7 Assessment Billing - YU-7 Assessment Tool: YU-7 Assessment 23470 ([id number])
== END 2023-08-18 09:43 | disposition home or self-care (01) ==
LOC: HO.HMGH 08:47
PROVIDERS: PCP Physician Assistant; Visit Provider Physician Assistant
DX: Z00.00 Encounter for general adult medical examination without abnormal findings (principal); E78.9 Disorder of lipoprotein metabolism, unspecified; I10 Essential (primary) hypertension; R73.09 Other abnormal glucose
CPT/HCPCS: 99396

== ENCOUNTER 2024-02-18 09:03 | Outpatient (AMB) | payer OTHER, SELFPAY ==
[2024-02-18 09:22] VITALS: BP 160/122; PULSE 66; O2SAT 96; BMI 30.2
--- NOTE | 2024-02-18 09:22 | MHC.PC.OV ---
Vital Signs 02/18/24 09:22 Height 5 ft 10 in Weight 210 lb 8 oz BMI 30.2 BP 160/122 H Blood Pressure Location Lt brachial Position Sitting Pulse 66 Pulse Source Pulse Oximeter Pulse Oximetry (%) 96 Oxygen Delivery Method Room Air Intake Visit Reasons: f/u HTN/ borderline high cholesterol. 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 HPI Details Patient is a 58-year-old male here today for follow-up visit.? Patient has a past medical history significant for obesity, hypertension, status post total hip replacements. .. Hypertension:? Blood pressure very elevated today in office, continues on lisinopril 20 mg. He admits to dietary indiscretion up being as physically active as he once was. He does not regularly monitor his blood pressure at home.? Otherwise patient asymptomatic without any headaches, chest discomfort or palpitations. PLAN: Will work strictly on lifestyle modifications as he has been able to lose weight and reduce his blood pressure this way. Will continue on current dose of lisinopril at this time. .. Obesity: Has unfortunately gained weight since last office visit. Patient does understand his BMI is over 30 will work on lifestyle modifications to reduce his weight. .. Borderline high cholesterol: Patient continues to have borderline high total cholesterol. [facility] Medical History Back pain Hypertension Normal colonoscopy Surgical History S/P shoulder surgery History of back surgery History of left hip hemiarthroplasty History of right hip replacement Family History Father Heart attack Alcoholic DMII (diabetes mellitus, type 2) Substance use disorder Social History Housing: House Alcohol intake: current Alcohol intake frequency: a few times a month Alcohol type: beer and hard liquor Comment: FELL OFF LADDER, OTHERWISE NO FALL RISK Patient Tobacco Use Status: Never used Tobacco e-Cigarette/Vaping Use: Never Used Second Hand Smoke Exposure: No service: No Current occupational status: employed Current occupation: [employer] Cognitive needs: No Hearing needs: No Vision needs: No Questionnaire PHQ-9 Over the last 2 weeks, how often have you been bothered by any of the following problems? 1. Little interest or pleasure in doing things: not at all 2. Feeling down, depressed, or hopeless: not at all 3. Trouble falling or staying asleep, or sleeping too much: not at all 4. Feeling tired or having little energy: not at all 5. Poor appetite or overeating: not at all 6. Feeling bad about yourself - or that you are a failure or have let yourself or your family down: not at all 7. Trouble concentrating on things, such as reading the newspaper or watching television: not at all 8. Moving or speaking so slowly that other people could have noticed. Or the opposite - being so fidgety or restless that you have been moving around a lot more than usual: not at all 9. Thoughts that you would be better off or of hurting yourself in some way: not at all Total score: 0 Depression Screening Interpretation: Negative Depression Screening Done: Yes 36993 - PHQ-9 Billing: Yes Source: Developed by Drs. Carlton Rivera, Estee Truong, Patel Montague and colleagues, with an educational ashish from [employer]. Thrive Questionnaire Date Thrive assessed: 02/18/24 I am a: Patient What is your living situation today?: I have a steady place to live Within the past 12 months, did the food you bought not last and you didn't have the money to get more?: Never true Within the past 12 months, did you worry whether your food would run out before you got money to buy more?: Never true Do you have trouble paying for medicines?: No Do you have trouble getting transportation to medical appointments?: No Do you have trouble paying your heating and electricity bill?: No Do you have trouble taking care of your child, family member or friend?: No Do you have trouble with day-to-day activities such as bathing, preparing meals, shopping, managing finances, etc.?: No Are you currently unemployed and looking for a job?: No Are you interested in more education?: No Please select the resources that you would like help with: None Currently or been in a relationship where the following occur: No concerns reported THRIVE Score: 0 AUDIT C Alcohol Use Questionnaire (AUDIT-C) 1. How often do you have a drink containing alcohol?: 2-4 times a month 2. How many drinks containing alcohol do you have on a typical day when you are drinking?: 1 or 2 3. How often do you have six or more drinks on one occasion?: Never Total Score: 2 YU-7 AMB Questionnaire YU-7 Date YU - 7 assessed: 02/18/24 Feeling nervous, anxious, or on edge: 0 = Not at all Not being able to stop or control worryin = Not at all Worrying too much about different things: 0 = Not at all Trouble relaxin = Not at all Being so restless that it is hard to sit still: 0 = Not at all Becoming easily annoyed or irritable: 0 = Not at all Feeling afraid as if something awful might happen: 0 = Not at all Total YU-7 score (0-4 normal; 5-9 mild; 10-14 moderate; 15-21 severe): 0 Source: Developed by Drs. Carlton Rivera, Estee Truong, Patel Montague and colleagues, with an educational ashish from [employer]. YU-7 Assessment Billing YU-7 Assessment Tool: YU-7 Assessment 28614 Review of Systems Const Denies headache(s) Eyes Denies loss of vision ENT Denies vertigo, Denies dizziness, Denies headache(s) and Denies sore throat Card Denies chest pain, Denies leg edema and Denies lightheadedness Resp Denies cough, Denies hemoptysis and Denies wheezing GI Denies abdominal pain, Denies melena, Denies constipation, Denies diarrhea and Denies vomiting Denies dysuria, Denies urinary frequency and Denies urinary urgency Musc Denies arthralgias, Denies joint swelling, Denies numbness and Denies tingling Neuro Denies Abnormal speech present, Denies behavioral changes, Denies vertigo, Denies dizziness, Denies headache(s), Denies loss of vision, Denies memory loss, Denies numbness and Denies tingling Psych Denies anxiety, Denies behavioral changes, Denies depression, Denies memory loss and Denies panic attacks Lobo/Lymph Denies easy bleeding and Denies easy bruising Aller/Immun Denies wheezing Physical exam (Primary Care) Vital Signs: Last Vital Signs Pulse 66 02/18/24 09:22 BP 160/122 H 02/18/24 09:22 Pulse Ox 96 02/18/24 09:22 Oxygen Delivery Method Room Air 02/18/24 09:22 BMI result Body Mass Index 30.2 Tobacco/Smoking Status: Tobacco use Status Tobacco use date assessed 02/18/24 02/18/24 09:24 Patient Tobacco Use Status Never used Tobacco 02/18/24 09:24 e-Cigarette/Vaping Use Never Used 02/18/24 09:24 PHQ-9: PHQ-9 Score PHQ-9: Total score 0 02/18/24 09:24 Depression Screening Interpretation: Negative Thrive Assessment: Date of Thrive Assessment Date Thrive assessed 02/18/24 02/18/24 09:24 Currently or been in a relationship where the following occur: No concerns reported Const General: healthy appearing, no acute distress, alert and awake Nutritional Appearance: well nourished Orientation/consciousness: oriented to person, oriented to place and oriented to time HENMT Ears: TM's normal bilaterally General nose exam: Normal nasal mucous membranes and turbinates present Eyes Conjunctivae: conjunctivae normal Sclerae: sclerae normal Pupils: Equal, round and reactive pupils present Neck Neck: Yes no lymphadenopathy and Yes no JVD Thyroid: Thyroid normal Carotids: no bruits Resp Effort & Inspection: normal respiratory effort and not tachypneic Auscultation: no crackles, no rales, no rhonchi and no wheezes Cardio Rate: regular rate Rhythm: regular rhythm Heart sounds: no murmurs and normal S1 and S2 GI Palpation (GI): Soft to palpation, nontender, no hepatomegaly and no splenomegaly Auscultation: normal bowel sounds Skin General skin exam: no rashes or lesions noted and dry skin Neuro General: oriented to person, oriented to place and oriented to time Cranial nerves: Yes Equal, round and reactive pupils present Speech: No Abnormal speech present Gait exam (Neuro): Normal gait present Motor exam (neuro): no tremor noted Extrem Right upper extremity: full ROM Left upper extremity: full ROM Right lower extremity: full ROM; no edema Left lower extremity: full ROM; no edema Psych Mental Status: mental status grossly normal Speech and movement: Normal speech and movement present Affect: normal affect Attitude: cooperative Thought process: Normal thought process present Assessment and Plan Assessment & Plan (1) HTN (hypertension): Code(s): I10 - Essential (primary) hypertension Qualifiers: Hypertension type: essential hypertension Qualified Code(s): I10 - Essential (primary) hypertension Plan: Patient's blood pressure slightly elevated today in office. He has been somewhat stress due to personal issues. He has not monitor blood pressure at home. He is asymptomatic without any headaches, chest pain shortness for breath. FOR NOW WILL WORK STRICTLY ON LIFESTYLE MODIFICATIONS AND LOW-SALT DIET. WILL HAVE PATIENT BACK IN 3 MONTHS AND IF BLOOD PRESSURE REMAINS STILL ELEVATED MAKE CHANGES IN HIS HYPERTENSIVE MED TEAM. Will continue lisinopril 20 mg with goal blood pressure to remain below 140/90 (2) Borderline high cholesterol: Code(s): E78.9 - Disorder of lipoprotein metabolism, unspecified Plan: Most recent fasting lipid panel showing borderline high total cholesterol. He will continue to manage his borderline high cholesterol with dietary and lifestyle modifications. Goal total cholesterol to be below 200. Goal LDL to be below 160 (3) Impaired glucose metabolism: Code(s): R73.09 - Other abnormal glucose Plan: Patient's most recent fasting blood sugar 107, A1c stable. Will continue to follow fasting blood sugar. He will try to implement low sugar and low carbohydrate diet to manage his blood sugars. Orders: Orders Lipid Panel 02/18/24 E78.9 - Disorder of lipoprotein metabolism, unspecified Comprehensive [employer]. Panel Fast 02/18/24 E78.9 - Disorder of lipoprotein metabolism, unspecified Complete Blood Count no Diff 02/18/24 I10 - Essential (primary) hypertension Hemoglobin A1c 02/18/24 R73.09 - Other abnormal glucose Patient Instructions: Goal: Blood pressure to be below 140/90, lose 10 lb over the next 3 months Barrier: Adherence to physical activity and healthy eating habits Coding Level of Care Code Est Pt Level 4 (93220) Diagnoses Essential hypertension I10 Hypertension type: essential hypertension Borderline high cholesterol E78.9 Impaired glucose metabolism R73.09 Additional Codes YU-7 Assessment Billing - YU-7 Assessment Tool: YU-7 Assessment 07851 ([id number])
== END 2024-02-18 09:41 | disposition home or self-care (01) ==
PROVIDERS: PCP Physician Assistant; Visit Provider Physician Assistant
DX: I10 Essential (primary) hypertension (principal); E78.9 Disorder of lipoprotein metabolism, unspecified; R73.09 Other abnormal glucose

== ENCOUNTER → 2024-02-18 09:03 | Outpatient (BNVA) | payer OTHER, SELFPAY | PROVIDERS: PCP Physician Assistant; Visit Provider Physician Assistant | DX: I10 Essential (primary) hypertension (principal); E78.9 Disorder of lipoprotein metabolism, unspecified; R73.09 Other abnormal glucose; Z79.899 Other long term (current) drug therapy | CPT/HCPCS: 96127 ==

== ENCOUNTER 2024-05-19 08:09 | Outpatient (AMB) | payer OTHER, SELFPAY ==
--- NOTE | 2024-05-19 08:12 | MHC.PC.OV ---
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 Required: No Accompanied by: Self / Same As Patient Allergies No Known Allergies [No Known Allergies*] Allergy (Verified 05/19/24 08:19) Medication List - Last Reconciled 05/19/24 by Anish Barr PA-C lisinopril 20 mg PO DAILY 90 days miscellaneous medical supply (Blood Pressure Cuff) As directed Tobacco use date assessed: 02/18/24 Dental Screening Dental Screen Date: 05/19/24 Did you have a dental visit in the last 12 months?: Yes Did you have a dental problem in the last 6 months where you did not have access to dental care?: No Was dental information given to patient?: Patient has dentist HPI f/u htn HPI Details Patient is a 59-year-old male here today for follow-up visit.? Patient has a past medical history significant for obesity, hypertension, status post total hip replacements. 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 .. Hypertension:? Blood pressure much improved today in office., continues on lisinopril 20 mg. He admits to dietary indiscretion up being as physically active as he once was. He does not regularly monitor his blood pressure at home.? Otherwise patient asymptomatic without any headaches, chest discomfort or palpitations. PLAN: Will work strictly on lifestyle modifications as he has been able to lose weight and reduce his blood pressure this way. Will continue on current dose of lisinopril at this time. .. Obesity: Has unfortunately gained weight since last office visit. Patient does understand his BMI is over 30 will work on lifestyle modifications to reduce his weight. [facility] Medical History (Updated 05/19/24 @ 08:56 by Anish Barr PA-C) Complete rotator cuff tear Back pain Hypertension Normal colonoscopy Surgical History S/P shoulder surgery History of back surgery History of left hip hemiarthroplasty History of right hip replacement Family History Father Heart attack Alcoholic DMII (diabetes mellitus, type 2) Substance use disorder Social History Housing: House Alcohol intake: current Alcohol intake frequency: a few times a month Alcohol type: beer and hard liquor Comment: FELL OFF LADDER, OTHERWISE NO FALL RISK Patient Tobacco Use Status: Never used Tobacco e-Cigarette/Vaping Use: Never Used Second Hand Smoke Exposure: No service: No Current occupational status: employed Current occupation: [employer] Current occupational exposures/hazards: No Cognitive needs: No Hearing needs: No Vision needs: No Questionnaire Thrive Questionnaire Date Thrive assessed: 02/18/24 Are you currently unemployed and looking for a job?: No YU-7 AMB Questionnaire YU-7 Date YU - 7 assessed: 02/18/24 Source: Developed by Drs. Carlton Rivera, Estee Truong, Patel Montague and colleagues, with an educational ashish from [employer]. Review of Systems Const Denies headache(s) Eyes Denies loss of vision ENT Denies vertigo, Denies dizziness, Denies headache(s) and Denies sore throat Card Denies chest pain, Denies leg edema and Denies lightheadedness Resp Denies cough, Denies hemoptysis and Denies wheezing GI Denies abdominal pain, Denies melena, Denies constipation, Denies diarrhea and Denies vomiting Denies dysuria, Denies urinary frequency and Denies urinary urgency Musc Denies arthralgias, Denies joint swelling, Denies numbness and Denies tingling Neuro Denies Abnormal speech present, Denies behavioral changes, Denies vertigo, Denies dizziness, Denies headache(s), Denies loss of vision, Denies memory loss, Denies numbness and Denies tingling Psych Denies anxiety, Denies behavioral changes, Denies depression, Denies memory loss and Denies panic attacks Lobo/Lymph Denies easy bleeding and Denies easy bruising Aller/Immun Denies wheezing Physical exam (Primary Care) Vital Signs: Last Vital Signs Pulse 68 05/19/24 08:13 BP 132/86 05/19/24 08:13 Pulse Ox 97 05/19/24 08:13 Oxygen Delivery Method Room Air 05/19/24 08:13 BMI result Body Mass Index 30.8 Tobacco/Smoking Status: Tobacco use Status Tobacco use date assessed 02/18/24 05/19/24 08:12 Patient Tobacco Use Status Never used Tobacco 05/19/24 08:12 e-Cigarette/Vaping Use Never Used 05/19/24 08:12 Thrive Assessment: Date of Thrive Assessment Date Thrive assessed 02/18/24 05/19/24 08:12 Const General: healthy appearing, no acute distress, alert and awake Nutritional Appearance: well nourished Orientation/consciousness: oriented to person, oriented to place and oriented to time HENMT Ears: TM's normal bilaterally General nose exam: Normal nasal mucous membranes and turbinates present Eyes Conjunctivae: conjunctivae normal Sclerae: sclerae normal Pupils: Equal, round and reactive pupils present Neck Neck: Yes no lymphadenopathy and Yes no JVD Thyroid: Thyroid normal Carotids: no bruits Resp Effort & Inspection: normal respiratory effort and not tachypneic Auscultation: no crackles, no rales, no rhonchi and no wheezes Cardio Rate: regular rate Rhythm: regular rhythm Heart sounds: no murmurs and normal S1 and S2 GI Palpation (GI): Soft to palpation, nontender, no hepatomegaly and no splenomegaly Auscultation: normal bowel sounds Skin General skin exam: no rashes or lesions noted and dry skin Neuro General: oriented to person, oriented to place and oriented to time Cranial nerves: Yes Equal, round and reactive pupils present Speech: No Abnormal speech present Gait exam (Neuro): Normal gait present Motor exam (neuro): no tremor noted Extrem Right upper extremity: full ROM Left upper extremity: full ROM Right lower extremity: full ROM; no edema Left lower extremity: full ROM; no edema Psych Mental Status: mental status grossly normal Speech and movement: Normal speech and movement present Affect: normal affect Attitude: cooperative Thought process: Normal thought process present Office Procedures Flu Questionnaire Does the patient have a severe egg allergy?: No Immunizations Fluarix Triv [id number] (PF) 45 mcg (15 mcg x 3)/0.5 mL IM syringe Performing Provider: Anish Barr PA-C [facility] Documented (not given) by: MILANA Barajas on 05/19/24 08:18 Reason Not Given: Patient Refused Coding Level of Care Code Est Pt Level 3 (46731) Diagnoses Essential hypertension I10 Hypertension type: essential hypertension Borderline high cholesterol E78.9 Class 1 obesity E66.811 Assessment & Plan Assessment & Plan (1) HTN (hypertension): Code(s): I10 - Essential (primary) hypertension Category: Medical Qualifiers: Hypertension type: essential hypertension Qualified Code(s): I10 - Essential (primary) hypertension Plan: Patient's blood pressure much improved today in office. He is consistent with the use lisinopril mg. Admits to some dietary indiscretion and will work on weight reduction via diet. Goal blood pressure to be below 140/90 consistently (2) Borderline high cholesterol: Code(s): E78.9 - Disorder of lipoprotein metabolism, unspecified Category: Medical Plan: Patient has a history of borderline high cholesterol. He will continue working on lifestyle and dietary modifications to reduce his cholesterol. Goal LDL is to be below 160 (3) Class 1 obesity: Code(s): E66.811 - Obesity, class 1 Category: Medical Plan: Patient does understand his BMI is over 30 will work on being more physically active and adapting to better eating habits to reduce his weight. Orders: Orders Influenza [id number] Immunization Today Z23 - Encounter for immunization
[2024-05-19 08:13] VITALS: BP 132/86; PULSE 68; O2SAT 97; BMI 30.8
== END 2024-05-19 08:32 | disposition home or self-care (01) ==
PROVIDERS: PCP Physician Assistant; Visit Provider Physician Assistant
DX: I10 Essential (primary) hypertension (principal); E78.9 Disorder of lipoprotein metabolism, unspecified; E66.811 Obesity, class 1; Z68.30 Body mass index [BMI] 30.0-30.9, adult

== ENCOUNTER → 2024-05-19 08:09 | Outpatient (BNVA) | payer OTHER, SELFPAY | PROVIDERS: PCP Physician Assistant; Visit Provider Physician Assistant ==

== ENCOUNTER 2024-08-13 08:48 | Outpatient (REF) | payer OTHER, SELFPAY ==
--- OUTSIDE RECORDS SUMMARY | 2024-08-13 09:09 | XMS_ITS | Clinical Summary ---
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 Name Role Phone Ethan Mcmillan MD Primary Care Provider [phone] Social History Tobacco Use Types Packs/Day Years Used Date Smoking Tobacco: Never Assessed Sex and Gender Information Value Date Recorded Sex Assigned at Not on file Legal Sex Male 8:39 AM EST Gender Identity Not on file Sexual Orientation Not on file Plan of Treatment Health Maintenance Due Date Last Done Comments DTaP,Tdap,and Td Vaccines (1 - Tdap) 1983 Pneumococcal Vaccine: 50+ Ye ars (1 of 1 - PCV) 2014 Zoster Vaccines (1 of 2) 2014 COVID-19 Vaccine ( - 2023-2 5 season) 2024 Influenza Vaccine (#1) 2024 RSV Immunization Patients 60 + Years Old (1 - 1-dose 75+ series) 2039 HIB Vaccines Aged Out No longer eligi ble based on patient's age to complete this topic HPV Vaccines Aged Out No longer eligi ble based on patient's age to complete this topic Hepatitis A Vaccines Aged Out No long er eligible based on patient's age to complete this topic Hepatitis B Vaccines Aged Out No long er eligible based on patient's age to complete this topic IPV Vaccines Aged Out No longer eligi ble based on patient's age to complete this topic MMR Vaccines Aged Out No longer eligi ble based on patient's age to complete this topic Meningococcal ACWY Vaccine Aged Out N o longer eligible based on patient's age to complete this topic Meningococcal B Vacine Aged Out No lo nger eligible based on patient's age to complete this topic Pneumococcal Vaccine: Pediat rics (0 to 5 Years) and At-Risk Patients (6 to 64 Years) Aged Out No longer eligible b ased on patient's age to complete this topic RSV Immunization Patients Un luz 20 months Aged Out No longer eligible b ased on patient's age to complete this topic Varicella Vaccines Aged Out No longer eligible based on patient's age to complete this topic Care Teams Kitchen Help Handyman Relationship Specialty Start Date End Date Ethan Mcmillan MD [address] [place] [address] [address] QUEENIE Staples PCP - General 08/28/16
[2024-08-13 09:37] LABS: Hematocrit 39.4 % (42.0-52.0); Hemoglobin 13.5 g/dl (14.0-18.0); Mean Corpuscular HGB Conc 34.3 g/dl (31.0-36.0); Mean Corpuscular Hemoglobin 29.7 pg (27.0-33.0); Mean Corpuscular Volume 86.8 fL (80.0-98.0); Mean Platelet Volume 10.5 fL (9.4-12.4); Platelet Count 262 X10*3/uL (160-400); Red Blood Count 4.54 X10*6/uL (4.60-5.80); Red Cell Distribution Width 13.1 % (11.0-16.0); White Blood Count 4.7 X10*3/uL (4.8-10.8)
[2024-08-13 10:06] LABS: Estimated Average Glucose 117 mg/dL; Hemoglobin A1c % 5.7 % (<6.0)
[2024-08-13 10:23] LABS: Alanine Aminotransferase 33 U/L (0-40); Albumin Level 4.4 g/dL (3.5-5.0); Alkaline Phosphatase 54 U/L (39-117); Anion Gap 12 (12-20); Aspartate Amino Transferase 39 U/L (5-37); Bilirubin Total 0.5 mg/dL (0.0-1.0); Blood Urea Nitrogen 22 mg/dL (9-16); Calcium 9.3 mg/dL (8.4-10.2); Carbon Dioxide 24 mmol/L (22-29); Chloride 107 mmol/L (96-108); Cholesterol 201 mg/dL (<200); Estimated Glomerular Filt Rate 59; Glucose Fasting 98 mg/dL (60-99); HDL Cholesterol 46 mg/dL (>40); LDL Cholesterol Calculated 135 mg/dL (<100); Potassium 4.3 mmol/L (3.3-5.1); Sodium 139 mmol/L (135-145); Triglycerides 101 mg/dL (<150)
== END 2024-08-13 08:49 | disposition home or self-care (01) ==
LOC: HO.LAB 08:48
PROVIDERS: PCP Physician Assistant; Visit Provider Physician Assistant
DX: E78.9 Disorder of lipoprotein metabolism, unspecified (principal); I10 Essential (primary) hypertension; R73.09 Other abnormal glucose
CPT/HCPCS: 36415; 80053; 80061; 83036; 85027

== ENCOUNTER 2024-08-19 07:55 | Outpatient (AMB) | payer OTHER, SELFPAY ==
--- NOTE | 2024-08-19 08:07 | A.OFFPC_ITS ---
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 Accompanied by: Self / Same As Patient Allergies No Known Allergies [No Known Allergies*] Allergy (Verified 08/19/24 08:16) Medication List - Last Reconciled 08/19/24 by Anish Barr PA-C lisinopril 20 mg PO DAILY 90 days miscellaneous medical supply (Blood Pressure Cuff) As directed Tobacco use date assessed: 08/19/24 Dental Screening Dental Screen Date: 08/19/24 Did you have a dental visit in the last 12 months?: Yes Did you have a dental problem in the last 6 months where you did not have access to dental care?: No Was dental information given to patient?: Patient has dentist HPI Annual exam HPI Details Patient is a 59-year-old male here today for annual physical.? Patient has a past medical history significant for obesity, hypertension, status post total hip replacements. .. Hypertension:? Blood pressure much improved today in office., continues on lisinopril 20 mg. He admits to dietary indiscretion up being as physically active as he once was. He does not regularly monitor his blood pressure at home.? Otherwise patient asymptomatic without any headaches, chest discomfort or palpitations. PLAN: Will work strictly on lifestyle modifications as he has been able to lose weight and reduce his blood pressure this way. Will continue on current dose of lisinopril at this time. .. Overweight : Has lost weight since last office visit. Patient does understand his BMI is over 30 will work on lifestyle modifications to reduce his weight. . Impaired glucose metabolism: Most recent A1c of 5.7 and fasting blood sugar has improved. He continues to work dietary modifications Vaccines:? Up-to-date with tetanus. declines flu and COVID vaccine. Considering Shingles and PCV-20 .. Colonoscopy: 2017 Dr Tellez?- Normal repeat 10 years? Laboratory Tests 08/23/22 08/13/23 08/13/24 07:17 07:17 09:10 RBC 4.54 L Hgb 12.6 L 13.5 L Creatinine 1.24 Fasting Glucose 107 H 98 Hemoglobin A1c % 5.6 5.7 AST 31 39 H Cholesterol 205 203 H 201 H LDL Cholesterol, C alc 135 131 H 135 H PSA Screen 2.27 PFSH Medical History Complete rotator cuff tear Back pain Hypertension Normal colonoscopy Surgical History S/P shoulder surgery History of back surgery History of left hip hemiarthroplasty History of right hip replacement Family History Father Heart attack Alcoholic DMII (diabetes mellitus, type 2) Substance use disorder Social History Housing: House Alcohol intake: current Alcohol intake frequency: a few times a month Alcohol type: beer and hard liquor Comment: FELL OFF LADDER, OTHERWISE NO FALL RISK Patient Tobacco Use Status: Never used Tobacco e-Cigarette/Vaping Use: Never Used Second Hand Smoke Exposure: No service: No Current occupational status: employed Current occupation: [employer] Current occupational exposures/hazards: No Cognitive needs: No Hearing needs: No Vision needs: No Questionnaire PHQ-9 Over the last 2 weeks, how often have you been bothered by any of the following problems? 1. Little interest or pleasure in doing things: not at all 2. Feeling down, depressed, or hopeless: several days 3. Trouble falling or staying asleep, or sleeping too much: several days 4. Feeling tired or having little energy: not at all 5. Poor appetite or overeating: not at all 6. Feeling bad about yourself - or that you are a failure or have let yourself or your family down: not at all 7. Trouble concentrating on things, such as reading the newspaper or watching television: not at all 8. Moving or speaking so slowly that other people could have noticed. Or the opposite - being so fidgety or restless that you have been moving around a lot more than usual: not at all 9. Thoughts that you would be better off or of hurting yourself in some way: not at all Total score: 2 Depression Screening Interpretation: Negative Depression Screening Done: Yes [id number] - PHQ-9 Billing: Yes Source: Developed by Drs. Carlton Rivera, Estee Truong, Patel Montague and colleagues, with an educational ashish from [employer]. Thrive Questionnaire Date Thrive assessed: 08/19/24 I am a: Patient What is your living situation today?: I have a steady place to live Within the past 12 months, did the food you bought not last and you didn't have the money to get more?: Never true Within the past 12 months, did you worry whether your food would run out before you got money to buy more?: Never true Do you have trouble paying for medicines?: No Do you have trouble getting transportation to medical appointments?: No Do you have trouble paying your heating and electricity bill?: No Do you have trouble taking care of your child, family member or friend?: No Do you have trouble with day-to-day activities such as bathing, preparing meals, shopping, managing finances, etc.?: No Are you currently unemployed and looking for a job?: No Are you interested in more education?: No Please select the resources that you would like help with: None Currently or been in a relationship where the following occur: No concerns reported THRIVE Score: 0 AUDIT C Alcohol Use Questionnaire (AUDIT-C) 1. How often do you have a drink containing alcohol?: 2-4 times a month 2. How many drinks containing alcohol do you have on a typical day when you are drinking?: 1 or 2 3. How often do you have six or more drinks on one occasion?: Never Total Score: 2 YU-7 AMB Questionnaire YU-7 Date YU - 7 assessed: 08/19/24 Feeling nervous, anxious, or on edge: 1 = Several days Not being able to stop or control worryin = Not at all Worrying too much about different things: 0 = Not at all Trouble relaxin = Several days Being so restless that it is hard to sit still: 0 = Not at all Becoming easily annoyed or irritable: 1 = Several days Feeling afraid as if something awful might happen: 0 = Not at all Total YU-7 score (0-4 normal; 5-9 mild; 10-14 moderate; 15-21 severe): 3 Source: Developed by Sandeep Malloyet B.W. Alexi, Patel Montague and colleagues, with an educational ashish from [employer]. YU-7 Assessment Billing YU-7 Assessment Tool: YU-7 Assessment 98883 Review of Systems Const Denies body aches, Denies chills, Denies excessive sweating, Denies fatigue, Denies fever(s) and Denies headache(s) Eyes Denies blurry vision ENT Denies dysphagia, Denies vertigo, Denies dizziness, Denies headache(s), Denies hearing loss and Denies tinnitus Card Denies chest pain, Denies chest pain with activity, Denies syncope, Denies irregular heart rhythm and Denies dyspnea Resp Denies chest congestion, Denies cough, Denies hemoptysis, Denies dyspnea and Denies wheezing GI Denies abdominal pain, Denies melena, Denies hematochezia, Denies coffee ground emesis, Denies dysphagia, Denies diarrhea, Denies nausea and Denies vomiting Denies difficulty urinating, Denies dysuria, Denies urinary frequency, Denies urinary hesitancy and Denies urinary urgency Musc Denies arthralgias, Denies limited range of motion, Denies muscle cramps and Denies muscle weakness Skin/Breast Denies rash and Denies skin ulcer Neuro Denies Abnormal speech present, Denies confusion, Denies vertigo, Denies dizziness, Denies syncope, Denies headache(s), Denies memory loss and Denies seizure-like activity Psych Denies anxiety, Denies confusion, Denies depression, Denies memory loss, Denies panic attacks and Denies paranoia Endo Denies excessive sweating, Denies fatigue, Denies flushing, Denies polydipsia and Denies polyuria Aller/Immun Denies wheezing Physical exam (Primary Care) Vital Signs: Last Vital Signs Pulse 77 08/19/24 08:08 BP 138/88 08/19/24 08:08 Pulse Ox 98 08/19/24 08:08 Oxygen Delivery Method Room Air 08/19/24 08:08 BMI result Body Mass Index 29.8 Tobacco/Smoking Status: Tobacco use Status Tobacco use date assessed 08/19/24 08/19/24 08:13 Patient Tobacco Use Status Never used Tobacco 08/19/24 08:13 e-Cigarette/Vaping Use Never Used 08/19/24 08:13 PHQ-9: PHQ-9 Score PHQ-9: Total score 2 08/19/24 08:13 Depression Screening Interpretation: Negative Thrive Assessment: Date of Thrive Assessment Date Thrive assessed 08/19/24 08/19/24 08:13 Currently or been in a relationship where the following occur: No concerns reported Const General: cooperative, comfortable, no acute distress, alert and awake; No confusion Orientation/consciousness: oriented to person, oriented to place, patient oriented x3 and No confusion HENMT Head: Yes normocephalic Ears: external ears normal and TM's normal bilaterally Face and sinus: No sinus tenderness Mouth: Normal oral and palatal mucosa present and tongue normal Teeth and gingiva: dentition normal and gingiva normal Throat: Yes posterior oropharynx normal, Yes tonsils normal and Yes uvula midline Eyes Conjunctivae: conjunctivae normal Sclerae: sclerae normal Pupils: Equal, round and reactive pupils present EOM: EOMs intact bilaterally Direct Ophthalmoscopy: No no photophobia Neck Neck: Yes no lymphadenopathy, No tender and Yes no JVD Thyroid: Thyroid normal Carotids: no bruits Chest Chest palpation & inspection: no tenderness Resp Effort & Inspection: normal respiratory effort, no audible wheezes, not labored and no stridor Auscultation: no crackles, no rales, no rhonchi and no wheezes Cardio Jugular venous distension: no JVD Rate: regular rate, not bradycardic and not tachycardic Rhythm: regular rhythm Bruits: no carotid bruits Peripheral pulses: Peripheral pulses 2+ throughout GI Inspection: Yes normal to inspection, No abdominal wall ecchymosis and No visible herniation Palpation (GI): Soft to palpation, nontender, no guarding, not rigid and No hepatosplenomegaly present Auscultation: normoactive bowel sounds General: Yes no CVA tenderness Back/Spine/Pelvis Back: no CVA tenderness and No back tenderness Cervical Spine: cervical ROM normal Thoracic/Lumbar Spine: thoracic and lumbar spine normal to inspection, straight leg raise negative bilaterally, No thoraco-lumbar ROM limited and No lumbar spinal tenderness Skin Lesions: no lesions Rashes: no rashes Wounds: no wounds Neuro General: oriented to person, oriented to place, patient oriented x3, CN's II-XI intact bilaterally and No confusion Cranial nerves: Yes Equal, round and reactive pupils present and Yes Normal accommodation reflex present Cognition (Neuro): normal cognition Speech: No Abnormal speech present Gait exam (Neuro): Normal gait present Motor exam (neuro): 5/5 motor strength present throughout Extrem Right upper extremity: full ROM; no cyanosis Left upper extremity: full ROM; no cyanosis Right lower extremity: no edema Left lower extremity: no edema Psych Appearance: grossly normal Mental Status: mental status grossly normal Affect: normal affect Attitude: cooperative Thought process: Normal thought process present Coding Level of Care Code Est Pt Prev Care 40-64y(79872) Diagnoses Annual physical exam Z00.00 Essential hypertension I10 Hypertension type: essential hypertension Borderline high cholesterol E78.9 Class 1 obesity E66.811 Impaired glucose metabolism R73.09 Additional Codes YU-7 Assessment Billing - YU-7 Assessment Tool: YU-7 Assessment [id number] ([id number]) PHQ-9 - 69674 - PHQ-9 Billing: Yes ([id number]) Assessment & Plan Assessment & Plan (1) Annual physical exam: Code(s): Z00.00 - Encounter for general adult medical examination without abnormal findings Category: Medical Plan: As per HPI (2) HTN (hypertension): Code(s): I10 - Essential (primary) hypertension Category: Medical Qualifiers: Hypertension type: essential hypertension Qualified Code(s): I10 - Essential (primary) hypertension Plan: Patient's blood pressure much improved today in office. He is consistent with the use lisinopril mg. Admits to some dietary indiscretion and will work on weight reduction via diet. Goal blood pressure to be below 140/90 consistently (3) Borderline high cholesterol: Code(s): E78.9 - Disorder of lipoprotein metabolism, unspecified Category: Medical Plan: Patient has a history of borderline high cholesterol. He will continue working on lifestyle and dietary modifications to reduce his cholesterol. Goal LDL is to be below 160 (4) Class 1 obesity: Code(s): E66.811 - Obesity, class 1 Category: Medical Plan: Patient does understand his BMI is over 30 will work on being more physically active and adapting to better eating habits to reduce his weight. (5) Impaired glucose metabolism: Code(s): R73.09 - Other abnormal glucose Category: Medical Plan: Patient's most recent fasting blood sugar improved now below 100. A1c is 5.7 and patient does understand he is in a prediabetic range. He will make lifestyle and dietary modifications with goal A1c to be below 5.7. Patient Instructions: Goal: Blood pressure to remain below 140/90, A1c to be below 5.7 Barriers: Adherence to physical activity and healthy eating habits
[2024-08-19 08:08] VITALS: BP 138/88; PULSE 77; O2SAT 98; BMI 29.8
== END 2024-08-19 08:40 | disposition home or self-care (01) ==
LOC: HO.HMCH 07:56
PROVIDERS: PCP Physician Assistant; Visit Provider Physician Assistant
DX: Z00.00 Encounter for general adult medical examination without abnormal findings (principal); E66.811 Obesity, class 1; Z68.29 Body mass index [BMI] 29.0-29.9, adult; I10 Essential (primary) hypertension; E78.9 Disorder of lipoprotein metabolism, unspecified; R73.09 Other abnormal glucose

== ENCOUNTER → 2024-08-19 07:55 | Outpatient (BNVA) | payer OTHER, SELFPAY | PROVIDERS: PCP Physician Assistant; Visit Provider Physician Assistant | DX: Z00.00 Encounter for general adult medical examination without abnormal findings (principal); I10 Essential (primary) hypertension; E78.9 Disorder of lipoprotein metabolism, unspecified; E66.811 Obesity, class 1; Z68.29 Body mass index [BMI] 29.0-29.9, adult; R73.09 Other abnormal glucose | CPT/HCPCS: 96127 ==

== ENCOUNTER 2025-02-23 07:48 | Outpatient (AMB) | payer OTHER, SELFPAY ==
--- OUTSIDE RECORDS SUMMARY | 2025-02-23 07:51 | XMS_ITS | Clinical Summary ---
Author Organization [facility] ity Address [address] [place] [address] Care Team Providers Care Machine Fitter Name Role Phone Ethan Mcmillan MD Primary Care Provider [phone] Social History Tobacco Use Types Packs/Day Years [...] 2014 Zoster Vaccines (1 of 2) 2014 Depression Screening 06/02/2024 COVID-19 Vaccine (1 - 2023-2 5 season) 2025 Influenza Vaccine (#1) 2025 RSV Immunization Adult Patie nts (1 - 1-dose 75+ series) 2039 HIB [...] age to complete this topic Meningococcal B Vaccine Aged Out No l onger eligible based on patient's age to complete this topic RSV Immunization Patients Un luz 20 months Aged Out No longer eligible b ased on patient's age to complete this topic Varicella Vaccines Aged Out No longer eligible based on patient's age to complete this topic Care Teams Machine Fitter Relationship Specialty Start Date End Date Ethan Mcmillan MD [address] [place] [address] Dr [address] [place] Staples PCP - General 08/28/16
--- OUTSIDE RECORDS SUMMARY | 2025-02-23 07:51 | XMS_ITS | Patient Health Record ---
Author Organization [facility] Address [address] [place] [address] Care Team Providers Care Rn Triage Name Role Phone Momo Anish Primary Care Provider Unavailab Andres Hawkins Jr Unavailable Reason For Referral No Information Medications Medication SIG (Take, Route, Frequency, Duration) Notes Start Date End Date Status Tylenol 325 MG 1 tablet as needed O rally as needed Active Omeprazole 20 MG take [facility] daily Oral for 30 Active oxyCODONE-Acetaminophen 10-325 MG (Schedule II Drug) Oral for 7 Active Immunizations Vaccine Route Administration Date Status Comme nts Influenza Unknown 07/09/2018 Refused Social History Tobacco Use: Social History Observation Description Date Details (start date - stop date) Never Smoker NA - NA Tobacco Use/Smoking Question Answer Notes Patient is a nonsmoker Alcohol Screen Question Answer Notes Did you have a drink contain ing alcohol in the past year? Yes How often did you have a dri nk containing alcohol in the past year? 2 to 3 times a week (3 points) How many drinks did you have on a typical day when you were drinking in the past year? 7 to 9 drinks (3 points) How often did you have 6 or more drinks on one occasion in the past year? Weekly (3 points) Points 9 Interpretation Positive Problems Problem Type SNOMED Code ICD Code Onset Dates Problem Status W/U Status Risk Notes Problem 892325371 Colon cancer screening (Z12.11) Active confirmed Problem 64411953 Encounter for other preprocedural examination (Z01.818) Active confirmed Problem 12381066 Upper GI bleed (K92.2) Active confirmed Problem 880309627 NSAID long-term use (Z79.1) Active confirmed Plan Of Treatment Future Test Test Name Order Date COLONOSCOPY 10/23/2016 UPPER GI ENDOSCOPY 07/09/2018 Insurance Providers Payer Name Payer Address Payer Phone Subscriber Number Group Number Insured Name Patient Relationship to Insured Coverage Start Date Coverage End Date [facility] [address] [facility] [place], [place] [phone] [id number] SG WAYNE Self - patient is the insured Medical (General) History Medical History History ICD Code Denies NE,DM,CVA,Lung disease,renal dise ase arthritis in left and right hip low back pain spinal stenosis vitamin D deficiency anemia laminectomy syndrome Surgical History Surgery Date(Month/Year) disc surgery 02/23/2015 [id number] dr castrejon
--- NOTE | 2025-02-23 08:08 | MHC.PC.OV ---
Vital Signs 02/23/25 08:09 Height 5 ft 10 in Weight 212 lb 8 oz BMI 30.5 BP 130/90 H Blood Pressure Location Lt brachial Position Sitting Pulse 67 Pulse Source Pulse Oximeter Temp 97.3 F Temp Source Temporal Artery Scan Pulse Oximetry (%) 94 Oxygen Delivery Method Room Air Intake Visit Reasons: f/u HTN/ IGM Intake Note: Patient is here to follow up on HTN, IGM. 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 Patient has a past medical history significant for obesity, hypertension, HLD .. Hypertension:? Blood pressure much improved today in office., continues on lisinopril 20 mg. He admits to dietary indiscretion up being as physically active as he once was. He does not regularly monitor his blood pressure at home.? Otherwise patient asymptomatic without any headaches, chest discomfort or palpitations. PLAN: Will work strictly on lifestyle modifications as he has been able to lose weight and reduce his blood pressure this way. Will continue on current dose of lisinopril at this time. .. Class 1 obesity: Has gained a few lb since last office visit Has . Patient does understand his BMI is over 30 will work on lifestyle modifications to reduce his weight. . Impaired glucose metabolism: Most recent A1c of 5.7 and fasting blood sugar has improved. 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 Carlton Rivera, Estee Truong, Patel Montague and colleagues, with an educational ashish from [employer]. Review of Systems Const Denies headache(s) Eyes Denies loss of vision ENT Denies vertigo, Denies dizziness, Denies headache(s) and Denies sore throat Card Denies chest pain, Denies leg edema and Denies lightheadedness Resp Denies cough, Denies hemoptysis and Denies wheezing GI Denies abdominal pain, Denies melena, Denies constipation, Denies diarrhea and Denies vomiting Denies dysuria, Denies urinary frequency and Denies urinary urgency Musc Denies arthralgias, Denies joint swelling, Denies numbness and Denies tingling Neuro Denies Abnormal speech present, Denies behavioral changes, Denies vertigo, Denies dizziness, Denies headache(s), Denies loss of vision, Denies memory loss, Denies numbness and Denies tingling Psych Denies anxiety, Denies behavioral changes, Denies depression, Denies memory loss and Denies panic attacks Lobo/Lymph Denies easy bleeding and Denies easy bruising Aller/Immun Denies wheezing Physical exam (Primary Care) Vital Signs: Last Vital Signs Temp 97.3 F 02/23/25 08:09 Pulse 67 02/23/25 08:09 BP 130/90 H 02/23/25 08:09 Pulse Ox 94 02/23/25 08:09 Oxygen Delivery Method Room Air 02/23/25 08:09 BMI result Body Mass Index 30.5 BMI Assessment/Plan discussion: High BMI High, discussed plan: lifestyle, weight reduction, dietary and physical activity Tobacco/Smoking Status: Tobacco use Status Tobacco use date assessed 02/23/25 02/23/25 08:09 Patient Tobacco Use Status Never used Tobacco 02/23/25 08:09 e-Cigarette/Vaping Use Never Used 02/23/25 08:09 Thrive Assessment: Date of Thrive Assessment Date Thrive assessed 08/19/24 02/23/25 08:09 Const General: healthy appearing, no acute distress, alert and awake Nutritional Appearance: well nourished Orientation/consciousness: oriented to person, oriented to place and oriented to time HENMT Ears: TM's normal bilaterally General nose exam: Normal nasal mucous membranes and turbinates present Eyes Conjunctivae: conjunctivae normal Sclerae: sclerae normal Pupils: Equal, round and reactive pupils present Neck Neck: Yes no lymphadenopathy and Yes no JVD Thyroid: Thyroid normal Carotids: no bruits Resp Effort & Inspection: normal respiratory effort and not tachypneic Auscultation: no crackles, no rales, no rhonchi and no wheezes Cardio Rate: regular rate Rhythm: regular rhythm Heart sounds: no murmurs and normal S1 and S2 GI Palpation (GI): Soft to palpation, nontender, no hepatomegaly and no splenomegaly Auscultation: normal bowel sounds Skin General skin exam: no rashes or lesions noted and dry skin Neuro General: oriented to person, oriented to place and oriented to time Cranial nerves: Yes Equal, round and reactive pupils present Speech: No Abnormal speech present Gait exam (Neuro): Normal gait present Motor exam (neuro): no tremor noted Extrem Right upper extremity: full ROM Left upper extremity: full ROM Right lower extremity: full ROM; no edema Left lower extremity: full ROM; no edema Psych Mental Status: mental status grossly normal Speech and movement: Normal speech and movement present Affect: normal affect Attitude: cooperative Thought process: Normal thought process present Coding Level of Care Code Est Pt Level 4 (88720) Diagnoses Essential hypertension I10 Hypertension type: essential hypertension Borderline high cholesterol E78.9 Class 1 obesity E66.811 Impaired glucose metabolism R73.09 Primary osteoarthritis of both hands M19.041; M19.042 Osteoarthritis type: primary Assessment & Plan Assessment & Plan (1) HTN (hypertension): Code(s): I10 - Essential (primary) hypertension Category: Medical Qualifiers: Hypertension type: essential hypertension Qualified Code(s): I10 - Essential (primary) hypertension Plan: Patient's blood pressure much improved today in office. He is consistent with the use lisinopril mg. Admits to some dietary indiscretion and will work on weight reduction via diet. Goal blood pressure to be below 140/90 consistently (2) Borderline high cholesterol: Code(s): E78.9 - Disorder of lipoprotein metabolism, unspecified Category: Medical Plan: Patient has a history of borderline high cholesterol. He will continue working on lifestyle and dietary modifications to reduce his cholesterol. Goal LDL is to be below 160 (3) Class 1 obesity: Code(s): E66.811 - Obesity, class 1 Category: Medical Plan: Patient does understand his BMI is over 30 will work on being more physically active and adapting to better eating habits to reduce his weight. (4) Impaired glucose metabolism: Code(s): R73.09 - Other abnormal glucose Category: Medical Plan: Patient's most recent fasting blood sugar improved now below 100. A1c is 5.7 and patient does understand he is in a prediabetic range. He will make lifestyle and dietary modifications with goal A1c to be below 5.7. (5) Osteoarthritis of hands, bilateral: Code(s): M19.041 - Primary osteoarthritis, right hand; M19.042 - Primary osteoarthritis, left hand Category: Medical Qualifiers: Osteoarthritis type: primary Qualified Code(s): M19.041 - Primary osteoarthritis, right hand; M19.042 - Primary osteoarthritis, left hand Plan: For arthritis, the patient is advised to use topical anti-inflammatory treatments such as Voltaren cream and consider occupational therapy to improve hand function and reduce pain. Orders: Orders Lipid Panel 02/23/25 E78.9 - Disorder of lipoprotein metabolism, unspecified Microalbumin, Random (w Creat) 02/23/25 I10 - Essential (primary) hypertension Hemoglobin A1c 02/23/25 R73.09 - Other abnormal glucose Comprehensive Ermine. Panel Fast 02/23/25 I10 - Essential (primary) hypertension Complete Blood Count no Diff 02/23/25 I10 - Essential (primary) hypertension Prostate Specific Antigen Scr 02/23/25 I10 - Essential (primary) hypertension, Z12.5 - Encounter for screening for malignant neoplasm of prostate Medications: Refilled lisinopril 20 mg PO DAILY 90 tabs 2RF 90 days I10 - Essential (primary) hypertension
[2025-02-23 08:09] VITALS: BP 130/90; PULSE 67; TEMP 36.3; O2SAT 94; BMI 30.5
== END 2025-02-23 08:33 | disposition home or self-care (01) ==
LOC: HO.HMCH 07:48
PROVIDERS: PCP Physician Assistant; Visit Provider Physician Assistant
DX: I10 Essential (primary) hypertension (principal); E78.9 Disorder of lipoprotein metabolism, unspecified; E66.811 Obesity, class 1; Z68.30 Body mass index [BMI] 30.0-30.9, adult; R73.09 Other abnormal glucose; M19.041 Primary osteoarthritis, right hand; M19.042 Primary osteoarthritis, left hand